=== PATIENT | male | born 1975 | race Caucasian/White ===

== ENCOUNTER 2017-11-16 07:03 | Emergency (ER) | payer OTHER ==
[2017-11-16] MEDS ORDERED: LIDOCAINE 2% INJ-PF (20 MG/ML) 10 ML AMPUL NEB ONE (08:43)
[2017-11-16] MEDS ORDERED: NORMAL SALINE 1000 ML 1,000 ML IV ONE (09:13)
[2017-11-16 09:17] LABS: ABSOLUTE BASOPHILS # (AUTO) 0.1 10^3/uL (0.0-0.2); ABSOLUTE EOSINOPHILS # (AUTO) 0.3 10^3/uL (0.0-0.6); ABSOLUTE LYMPHOCYTES (AUTO) 3.1 10^3/uL (0.5-4.7); ABSOLUTE MONOCYTES (AUTO) 0.6 10^3/uL (0.1-1.4); ABSOLUTE NEUT (AUTO) 5.3 10^3/uL (1.7-8.2); BASOPHILS % (AUTO) 0.6 % (0-2); EOSINOPHILS % (AUTO) 3.3 % (0-6); HEMATOCRIT 47.9 % (37.9-51.0); HEMOGLOBIN 16.6 g/dL (13.5-17.0); LYMPHOCYTES % (AUTO) 32.9 % (13-45); MEAN CORPUSCULAR HGB CONC 34.7 g/dL (32.0-36.0); MEAN CORPUSCULAR VOLUME 86 fl (80-97); MONOCYTES % (AUTO) 6.2 % (3-13); PLATELET COUNT 234 10^3/uL (150-450); RED BLOOD COUNT 5.55 10^6/uL (4.35-5.55); RED CELL DISTRIBUTION WIDTH 12.1 % (11.5-14.0); TOTAL CELLS COUNTED % (AUTO) 100 %; WHITE BLOOD COUNT 9.4 10^3/uL (4.0-10.5)
[2017-11-16 09:30] LABS: ALANINE AMINOTRANSFERASE 95 U/L (21-72); ALKALINE PHOSPHATASE 114 U/L (38-126); ANION GAP 18 (5-19); ASPARTATE AMINO TRANSFERASE 67 U/L (17-59); BILIRUBIN,DIRECT 0.4 mg/dL (0.0-0.4); BILIRUBIN,TOTAL 1.3 mg/dL (0.2-1.3); BLOOD UREA NITROGEN 6 mg/dL (7-20); CARBON DIOXIDE 25 mmol/L (22-30); CHLORIDE 94 mmol/L (98-107); GLUCOSE 378 mg/dL (75-110); POTASSIUM 3.8 mmol/L (3.6-5.0); SODIUM 136.8 mmol/L (137-145); TOTAL PROTEIN 8.7 g/dL (6.3-8.2)
[2017-11-16] MEDS ORDERED: FENTANYL CITRATE INJ/PF 100 MCG/2 ML AMPUL IV ONE ×2 (09:30→10:58)
--- NOTE | 2017-11-16 09:44 | ER Document Report ---
ED ENT - General Chief Complaint: Difficulty Swallowing Stated Complaint: UNABLE TO SWALLOW Time Seen by Provider: 11/16/17 08:42 Mode of Arrival: Ambulatory Information source: Patient Notes: This 41-year-old male patient comes emergency room complaining of onset 11/12/2017 of painful swelling in his left submandibular neck region. Over the next few days the depth comfort progressed medially across the floor of his mouth and went up into the ears bilaterally. Pain also increased in the throat to the point that now he has difficulty swallowing. There is no fever that he knows of. He did note his blood sugars around 400 this morning. There is no cough, nausea vomiting or diarrhea. Patient takes 35 units of 70/30 insulin in the morning at 6 AM and in the evening. He did take his medication this morning. He was on metformin until 2 weeks ago, when it was stopped due to elevated creatinine, but there was no adjustment in his insulin dosing at that time. His blood sugars have been running high recently. The patient takes losartan for his blood pressure, he had been on lisinopril but had chronic cough from that. Review of the [facility] databank shows the patient takes 10 mg [place] 4 times daily and the dosing has been doubled in the past few months. TRAVEL OUTSIDE OF THE [place] IN LAST 30 DAYS: No - Related Data Allergies/Adverse Reactions: gabapentin [From Neurontin] Allergy (Verified 11/16/17 07:12) Past Medical History - General Information source: Patient - Social History Smoking Status: Unknown if Ever Smoked Cigarette use (# per day): No Chew tobacco use (# tins/day): No Smoking Education Provided: No Frequency of alcohol use: Occasional Drug Abuse: None Family History: Reviewed & Not Pertinent - Past Medical History Cardiac Medical History: Reports: Hx Hypercholesterolemia, Hx Hypertension Denies: Hx Coronary Artery Disease Pulmonary Medical History: Reports: None EENT Medical History: Reports: None Neurological Medical History: Reports: None Endocrine Medical History: Reports: Hx Diabetes Mellitus Type 2 - Patient has been diabetic since late 2014. Renal/ Medical History: Reports: None GI Medical History: Reports: None Musculoskeltal Medical History: Reports Other - Chronic low back pain Psychiatric Medical History: Reports: None Traumatic Medical History: Reports: Hx Spine Fracture - Midthoracic compression fractures Past Surgical History: Reports: Hx Orthopedic Surgery - Right knee ACL repair, Hx Umbilical Hernia Review of Systems - Review of Systems Constitutional: No symptoms reported EENT: See HPI, Throat pain Cardiovascular: No symptoms reported Respiratory: No symptoms reported Gastrointestinal: No symptoms reported Genitourinary: No symptoms reported Musculoskeletal: Back pain Skin: No symptoms reported Hematologic/Lymphatic: No symptoms reported Neurological/Psychological: No symptoms reported Physical Exam - Vital signs Vitals: Temp Pulse Resp BP Pulse Ox 99.1 F 120 H 14 136/87 H 96 11/16/17 07:31 11/16/17 07:31 11/16/17 07:31 11/16/17 07:31 11/16/17 07:31 Interpretation: Tachycardic - General General appearance: Alert, Other - Patient appears uncomfortable - HEENT Head: Normocephalic, Atraumatic Eyes: Normal Pupils: PERRL Tympanic membrane: Normal Mucous membranes: Dry Pharynx: Erythema, Uvular edema, Other - There are 2 areas of very superficial erosion measuring about 0.5 x 1 cm located on either side of the uvula on the soft palate. These appear to be mirror images of each other. They do appear to be viral ulcerations. No: Exudate Neck: Other - Very tender to palpate with some swelling noted in the left anterior neck just below the mandible - Respiratory Respiratory status: No respiratory distress Breath sounds: Normal - Cardiovascular Rhythm: Regular, Tachycardia Heart sounds: Normal auscultation Murmur: No - Abdominal Inspection: Normal Bowel sounds: Normal Tenderness: Nontender - Back Back: Other - No gross abnormalities noted - Extremities General upper extremity: Normal inspection, Other - There are no lesions on the palms General lower extremity: Normal inspection, Other - There are no lesions on the soles - Neurological Neuro grossly intact: Yes - Psychological Associated symptoms: Normal affect, Normal mood - Skin Skin Temperature: Warm Skin Moisture: Dry Skin Color: Normal Course - Re-evaluation Re-evalutation: 11/16/17 11:47 The nurse notified me that the [facility] a call them about concerns the brother had had. Apparently the brother called them and was concerned about the patient being depressed and needing mental health evaluation. I was told the patient had a suicide attempt in 2012. I discussed this with the patient, he reports it was an overdose in 2003 after his had an affair and left him to her high school sweetheart. He states he moved in with his brother in February last year after his second divorce and his brother is active duty and was transferred to this area recently. They had been living and [place], [place]. The patient states that he actually enjoys living in this area that is quiet and slower placed in dialysis. He reports she takes Elavil twice daily and trazodone at bedtime for his depression and anxiety issues. He states he is not suicidal. He thinks his brother is concerned because occasionally he will become a little withdrawn and quiet and his brother thinks he is thinking about his ex-. He agrees to discuss these concerns with his brother. - Vital Signs Vital signs: Temp Pulse Resp BP Pulse Ox 99.1 F 120 H 14 136/87 H 96 11/16/17 07:31 11/16/17 07:31 11/16/17 07:31 11/16/17 07:31 11/16/17 07:31 - Laboratory Result Diagrams: 11/16/17 08:55 11/16/17 08:55 Laboratory results interpreted by me: 11/16/17 11/16/17 11/16/17 08:55 08:55 12:03 Sodium 136.8 L Chloride 94 L BUN 6 L Glucose 378 H POC Glucose 260 H Hemoglobin A1c % 10.0 H Calcium 11.0 H AST 67 H ALT 95 H Total Protein 8.7 H - Diagnostic Test Radiology reviewed: Image reviewed, Reports reviewed - CT scan does not show any significant findings. Discharge - Discharge Clinical Impression: Acute viral pharyngitis, Poorly controlled diabetes mellitus Condition: Stable Disposition: HOME, SELF-CARE Additional Instructions: Sore Throat: Sore throats may be caused by viruses, bacteria, or fungi. Most are due to a virus, and must get better on their own. Bacterial sore throats, particularly those due to "strep," need treatment with antibiotics. If an antibiotic is prescribed, be sure to take the medication for a full 10 days. Failure to take the antibiotic can result in complications such as rheumatic fever. Sometimes, an injection of antibiotics is given instead of pills or liquid. This single "shot" is equal in effectiveness to the oral medication. To relieve symptoms, take acetaminophen for pain. Sip clear liquids frequently, or eat popsicles or ice chips. Anesthetic sprays or lozenges may help. Make sure the air in the room is not too dry. Avoid using decongestants or antihistamines. Call the doctor if there is no improvement in two days, or if you have difficulty breathing, increasing throat pain, high fever, rash, or frequent vomiting. Your evaluation suggests this is a viral sore throat. Take the prednisone as prescribed to reduce the inflammation and discomfort. Drink plenty of fluids. Take your regularly prescribed pain medication as needed for pain. Your hemoglobin A1c level was 10.0, this suggests that your blood sugars have been poorly controlled for the last 4 months. You should start taking your metformin again until you can see your primary care provider to discuss adjusting her insulin, and possibly starting a sliding scale for regular insulin. Follow-up with your primary care provider in the next few days for recheck-- take copies of your lab work with you to show to your primary care provider. RETURN TO THE EMERGENCY ROOM IF ANY NEW OR WORSENING SYMPTOMS. Prescriptions: Prednisone [Deltasone 10 mg Tablet] 10 mg PO ASDIR PRN #21 tablet PRN Reason: Referrals: YAAKOV NEWELL PA [Primary Care Provider] - Follow up in 3-5 days
[2017-11-16] MEDS: NORMAL SALINE 1000 ML 1,000 ML IV PRN ×2 (09:51→11:06)
[2017-11-16] MEDS ORDERED: METHYLPREDNISOLONE INJ 125 MG/2 ML SDV IV ONE (09:58)
--- NOTE | 2017-11-16 10:15 | RADIOLOGY REPORT (SQ) ---
EXAM DESCRIPTION: CT SOFT TISSUE NECK WITH COMPLETED DATE/TIME: 11/16/2017 9:55 am REASON FOR STUDY: neck swelling, diff swallowing, tongue pain bilateral submandibular gland swelling COMPARISON: None. TECHNIQUE: Post IV contrasted scanning from skull base through lung apices with review of bone, soft tissue and lung windows. Reconstructed coronal and sagittal MPR images reviewed. All images stored on PACS. All CT scanners at this facility use dose modulation, iterative reconstruction, and/or weight based d osing when appropriate to reduce radiation dose to as low as reasonably achievable (ALARA). [facility]: Dose Right [facility]: CareDose [facility]: Dose Right [facility]: Teradose 4D [facility]: [employer] CONTRAST TYPE AND DOSE: contrast/concentration: Isovue 370.00 mg/ml; Total Contrast Delivered: 75.0 ml; Total Saline Delivered: 55.0 ml RENAL FUNCTION: Creatinine 0.9 RADIATION DOSE: CT Rad equipment meets quality standard of care and radiation dose reduction techniq ues were employed. CTDIvol: 17.1 mGy. DLP: 609 mGy-cm. . LIMITATIONS: None. FINDINGS: SKULL BASE: Embolization coils are present along the right pterygopalatine fossa/ superior nasopharyngeal region. MAJOR SALIVARY GLANDS: No solid or cystic masses. No inflammatory changes. LYMPHADENOPATHY: No bulky adenopathy. Right jugulodigastric lymph node 1.6 x 1.2 cm in size. Left j ugulodigastric lymph node 1.3 x 0.8 cm in size. MUCOSAL MASSES OR ASYMMETRY: No mucosal masses or asymmetry. LARYNX/CORDS: No abnormal findings. VASCULAR STRUCTURES: The major vessels are patent. LUNG APICES: Clear. BONES: Intact. THYROID: Normal size. No masses. PARANASAL SINUSES: Clear. OTHER: Results discussed with Dr. Samson IMPRESSION: NO SIGNIFICANT FINDING IN THE SOFT TISSUES OF THE NECK. TECHNICAL DOCUMENTATION: JOB ID: [id number] Quality ID # [id number]: Final reports with documentation of one or more dose reduction techniques (e.g., Au tomated exposure control, adjustment of the mA and/or kV according to patient size, use of iterative reconstruction technique) 2010 [employer]- All Rights Reserved Reading location - IP/workstation name: [email or web address]
[2017-11-16] MEDS ORDERED: FENTANYL CITRATE INJ/PF 250 MCG/5 ML AMPULE IV ONE (10:47)
[2017-11-16] MEDS ORDERED: KETOROLAC TROMETHAMINE INJ/PF 30 MG/1 ML SDV IV ONE (10:47)
[2017-11-16 13:20] VITALS: BP 130/88
== END 2017-11-16 13:20 | disposition home or self-care (01) ==
LOC: ER 07:03
DX: R13.10 Dysphagia, unspecified (principal); J02.9 Acute pharyngitis, unspecified; E11.9 Type 2 diabetes mellitus without complications; G89.29 Other chronic pain; M54.5 Low back pain; E78.00 Pure hypercholesterolemia, unspecified; I10 Essential (primary) hypertension; Z79.4 Long term (current) use of insulin
CPT/HCPCS: 96376; 99284; 96361; 96374; 96375; 36415; 87070; 87880; 82962; 85025; 87077; 80053; 83036; 70491; J3010; J2930; J1885; J7030

== ENCOUNTER 2018-03-11 11:41 | Emergency (ER) | payer OTHER ==
--- NOTE | 2018-03-11 12:19 | ER Document Report ---
ED Medical Screen (RME) - General Chief Complaint: Fall Injury Stated Complaint: FALL/RIGHT SIDE BODY PAIN Time Seen by Provider: 03/11/18 12:01 Mode of Arrival: Ambulatory Information source: Patient Notes: 42-year-old male presents to ED for complaint of pain to his neck right chest right back right abdomen. He states he fell down a flight of stairs last night with a loss of consciousness. He states he is not able to get up and down without severe tremors and pain. He states he put a hole in the wall when he fell. He states he tripped and fell down the stairs. Has a history of diabetes. Lungs are clear respirations are regular and unlabored. He states it is very painful to take a breath. I have greeted and performed a rapid initial assessment of this patient. A comprehensive ED assessment and evaluation of the patient, analysis of test results and completion of medical decision making process will be conducted by an additional ED providers. TRAVEL OUTSIDE OF THE [place] IN LAST 30 DAYS: No - Related Data Allergies/Adverse Reactions: gabapentin [From Neurontin] Allergy (Verified 03/11/18 11:41) Past Medical History - Social History Chew tobacco use (# tins/day): No Frequency of alcohol use: Occasional Drug Abuse: None - Past Medical History Cardiac Medical History: Reports: Hx Hypercholesterolemia, Hx Hypertension Denies: Hx Coronary Artery Disease Endocrine Medical History: Reports: Hx Diabetes Mellitus Type 2 - Patient has been diabetic since late 2014. Renal/ Medical History: Denies: Hx Peritoneal Dialysis Traumatic Medical History: Reports: Hx Spine Fracture - Midthoracic compression fractures Past Surgical History: Reports: Hx Orthopedic Surgery - Right knee ACL repair, Hx Umbilical Hernia Doctor's Discharge - Discharge Referrals: YAAKOV NEWELL PA [Primary Care Provider] - Follow up as needed
[2018-03-11 12:20] VITALS: BP 141/93
[2018-03-11] MEDS ORDERED: MORPHINE SULFATE 10 MG/ML INJ IM ONE (12:28)
--- NOTE | 2018-03-11 12:35 | ER Document Report ---
ED Fall - General Chief Complaint: Fall Injury Stated Complaint: FALL/RIGHT SIDE BODY PAIN Time Seen by Provider: 03/11/18 12:01 Mode of Arrival: Ambulatory Information source: Patient TRAVEL OUTSIDE OF THE [place] IN LAST 30 DAYS: No - HPI Notes: Patient is a 42-year-old male that presents to the emergency department for chief complaint of fall and rib pain. Patient states last night he fell down the stairs. He states he was walking and tripped on the stairs. He denied any syncopal events. He states he tumbled landing mostly on his right side. He states he hit his head on the wall and may have lost consciousness. He does remember landing at the bottom of the stairs. Since then he has had pain on his right side and back. He states most of the pain is around his right scapula and right lateral chest wall. The pain is sharp and worse with moving. He denies relieving factors. He took a hydrocodone at home which is a medication he is prescribed for chronic back pain. The hydrocodone gave him no relief. He denies any headache , numbness, weakness, vision changes, nausea, vomiting and abdominal pain. Past Medical History: Diabetes Past Surgical History: Negative Social History: Occasional alcohol. Occasional tobacco. Denies drug use Family History: Reviewed and noncontributory for presenting illness Allergies: Reviewed, see documented allergy list. REVIEW OF SYSTEMS: CONSTITUTIONAL : No fever No chills No diaphoresis No recent illness EENT: No vision changes No congestion No sore throat CARDIOVASCULAR: No chest pain No palpitations RESPIRATORY: No shortness of breath No cough No difficulty breathing GASTROINTESTINAL: No abdominal pain No nausea No vomiting No diarrhea GENITOURINARY: No dysuria No hematuria No difficulty urinating MUSCULOSKELETAL: back pain No leg pain No arm pain SKIN: No rashes No lesions LYMPHATIC: No swollen, enlarged glands. NEUROLOGICAL: No lightheadedness No headache No weakness No paresthesias PSYCHIATRIC: No anxiety No depression PHYSICAL EXAMINATION: Vital signs reviewed, nursing noted reviewed. GENERAL: Well-appearing, well-nourished and in no acute distress. HEAD: Atraumatic, normocephalic. EYES: Eyes appear normal, extraocular movements intact, sclera anicteric, conjunctiva are normal. ENT: nares patent, oropharynx clear without exudates. Moist mucous membranes. NECK: Normal range of motion, supple without lymphadenopathy no midline tenderness. No bilateral paraspinal tenderness. Back: No midline thoracic or lumbar tenderness. No lumbar paraspinal tenderness. Normal range of motion of the entire spine. Right paraspinal thoracic tenderness just medial to scapula. No scapular tenderness. LUNGS: Breath sounds clear to auscultation bilaterally and equal. No wheezes rales or rhonchi. Right lateral chest wall tenderness with no crepitus or flail segments. HEART: Regular rate and rhythm without murmurs ABDOMEN: Soft, nontender, normoactive bowel sounds. No rebound, guarding, or rigidity. No masses appreciated. EXTREMITIES: Normal range of motion without tenderness of right shoulder, right elbow, right wrist. normal gait. Pelvis stable. No long bone deformities or bony tenderness. NEUROLOGICAL: No focal neurological deficits. Moves all extremities spontaneously Motor and sensory grossly intact on exam. PSYCH: Normal mood, normal affect. SKIN: Warm, Dry, normal turgor, no rashes or lesions noted on exposed skin. No ecchymosis to trunk, upper extremities, or lower extremities. No abrasions. - Related data Allergies/Adverse Reactions: gabapentin [From Neurontin] Allergy (Verified 03/11/18 11:41) Past Medical History - General Information source: Patient - Social History Smoking Status: Never Smoker Chew tobacco use (# tins/day): No Frequency of alcohol use: Occasional Drug Abuse: None Family History: Reviewed & Not Pertinent Patient has suicidal ideation: No Patient has homicidal ideation: No - Past Medical History Cardiac Medical History: Reports: Hx Hypercholesterolemia, Hx Hypertension Denies: Hx Coronary Artery Disease Endocrine Medical History: Reports: Hx Diabetes Mellitus Type 2 - Patient has been diabetic since late 2014. Renal/ Medical History: Denies: Hx Peritoneal Dialysis Traumatic Medical History: Reports: Hx Spine Fracture - Midthoracic compression fractures Past Surgical History: Reports: Hx Orthopedic Surgery - Right knee ACL repair, Hx Umbilical Hernia Review of Systems - Review of Systems Notes: Dictated Physical Exam - Vital signs Vitals: Temp Pulse Resp BP Pulse Ox 98.6 F 116 H 20 141/93 H 95 03/11/18 11:49 03/11/18 11:49 03/11/18 11:49 03/11/18 11:49 03/11/18 11:49 - Notes Notes: Dictated Course - Re-evaluation Re-evalutation: 03/11/18 12:35 Vitals reviewed. Nursing notes reviewed. Patient is ambulatory with no focal neurologic deficits. He does report a fall with possible loss of consciousness and CT brain and cervical spine obtained to evaluate for injury. Patient has tenderness to palpation on his right lateral rib cage and right thoracic paraspinal musculature. He has no midline spinal tenderness. There are no external signs of injury including abrasions and ecchymosis. 03/11/18 14:02 Patient received 8 mg of IM morphine. Nursing notes that as soon as the injection was given he told her that morphine never works for him. He was aware that he was receiving morphine prior to getting the injection. Patient states that "only Dilaudid works for me". He has repeatedly asked for Dilaudid despite being told that he just received an opiate pain medication and further opiates given immediately is not indicated. He was ordered Lidoderm patch for further pain control. X-ray shows no pneumothorax or acute bony injury. CT of the cervical spine is negative. 03/11/18 14:11 CT brain negative for intracranial injury. Patient will be discharged home in stable condition. Told to return for new or worsening symptoms. - Vital Signs Vital signs: Temp Pulse Resp BP Pulse Ox 98.6 F 116 H 20 141/93 H 95 03/11/18 11:49 03/11/18 11:49 03/11/18 11:49 03/11/18 11:49 03/11/18 11:49 Discharge - Discharge Clinical Impression: Fall Qualifiers: Encounter type: initial encounter Qualified Code(s): W19.XXXA - Unspecified fall, initial encounter Thoracic back pain Qualifiers: Chronicity: acute Back pain laterality: right Qualified Code(s): M54.6 - Pain in thoracic spine Contusion of rib on right side Qualifiers: Encounter type: initial encounter Qualified Code(s): S20.211A - Contusion of right front wall of thorax, initial encounter Condition: Stable Disposition: HOME, SELF-CARE Instructions: Rib Contusion ([facility]) Additional Instructions: Please return to the emergency department if you have any worsening, or concern of your symptoms. Please return to the emergency department if you develop chest pain, difficulty breathing, severe abdominal pain, or ongoing vomiting. Please follow-up with your primary care physician in 2-3 days and any other recommended physicians. If prescribed, take all medications as directed. If you have any questions or concerns do not hesitate to return the emergency department for evaluation. [] Referrals: YAAKOV NEWELL PA [Primary Care Provider] - Follow up in 3-5 days
--- NOTE | 2018-03-11 13:41 | RADIOLOGY REPORT (SQ) ---
EXAM DESCRIPTION: CT CERVICAL SPINE WITHOUT COMPLETED DATE/TIME: 03/11/2018 1:13 pm REASON FOR STUDY: fell down of stairs pain rt neck chest and abd COMPARISON: None. TECHNIQUE: Axial images acquired through the cervical spine without intravenous contrast. Images re viewed with lung, soft tissue and bone windows. Reconstructed coronal and sagittal MPR images review ed. Images stored on PACS. All CT scanners at this facility use dose modulation, iterative reconstruction, and/or weight based d osing when appropriate to reduce radiation dose to as low as reasonably achievable (ALARA). [facility]: Dose Right [facility]: CareDose [facility]: Dose Right [facility]: Teradose 4D [facility]: [employer] [place] RADIATION DOSE: CT Rad equipment meets quality standard of care and radiation dose reduction techniq ues were employed. CTDIvol: 33.4 mGy. DLP: 776 mGy-cm. mGy. LIMITATIONS: None. FINDINGS: ALIGNMENT: Anatomic. MINERALIZATION: Normal. VERTEBRAL BODIES: No fractures or dislocation. DISCS: No significant disc disease. FACETS, LATERAL MASSES, POSTERIOR ELEMENTS: Anatomic variant incomplete posterior arch of C1. HARDWARE: None in the spine. VISUALIZED RIBS: No fractures. LUNG APICES AND SOFT TISSUES: No significant or acute findings. OTHER: No other significant finding. IMPRESSION: NO ACUTE OR SIGNIFICANT FINDINGS IN THE CERVICAL SPINE. TECHNICAL DOCUMENTATION: JOB ID: [id number] Quality ID # [id number]: Final reports with documentation of one or more dose reduction techniques (e.g., Au tomated exposure control, adjustment of the mA and/or kV according to patient size, use of iterative reconstruction technique) 2010 [employer]- All Rights Reserved Reading location - IP/workstation name: [email or web address]
--- NOTE | 2018-03-11 13:58 | RADIOLOGY REPORT (SQ) ---
EXAM DESCRIPTION: RIBS RIGHT W/PA CHEST COMPLETED DATE/TIME: 03/11/2018 1:16 pm REASON FOR STUDY: fall, right rib pain COMPARISON: None. TECHNIQUE: Frontal view of the chest and additional views of the right ribs acquired. NUMBER OF VIEWS: Four view. LIMITATIONS: None. FINDINGS: FRONTAL CXR: Bandlike scarring or atelectasis right lower lung. No pneumothorax. RIBS: No displaced rib fractures. No lytic or blastic bony lesions. OTHER: No other significant finding. IMPRESSION: NO PNEUMOTHORAX. NO DISPLACED RIB FRACTURES. COMMENT: SITE OF TRAUMA/COMPLAINT MARKED/STAMP COMPLETED: NO. TECHNICAL DOCUMENTATION: JOB ID: [id number] [employer]- All Rights Reserved Reading location - IP/workstation name: [email or web address]
[2018-03-11] MEDS ORDERED: LIDOCAINE 5% (700 MG) TRANSDERMAL ADH..PATCH TP ONE (14:04)
--- NOTE | 2018-03-11 14:10 | RADIOLOGY REPORT (SQ) ---
EXAM DESCRIPTION: CT HEAD WITHOUT COMPLETED DATE/TIME: 03/11/2018 1:13 pm REASON FOR STUDY: fall COMPARISON: None. TECHNIQUE: Axial images acquired through the brain without intravenous contrast. Images reviewed wi th bone, brain and subdural windows. Additional sagittal and coronal reconstructions were generated. Images stored on PACS. All CT scanners at this facility use dose modulation, iterative reconstruction, and/or weight based d osing when appropriate to reduce radiation dose to as low as reasonably achievable (ALARA). [facility]: Dose Right [facility]: CareDose [facility]: Dose Right [facility]: Teradose 4D [facility]: [employer] RADIATION DOSE: CT Rad equipment meets quality standard of care and radiation dose reduction techniq ues were employed. CTDIvol: 53.2 mGy. DLP: 1070 mGy-cm. mGy. LIMITATIONS: None. FINDINGS: VENTRICLES: Normal size and contour. CEREBRUM: No masses. No hemorrhage. No midline shift. No evidence for acute infarction. Normal gra y/white matter differentiation. No areas of low density in the white matter. CEREBELLUM: No masses. No hemorrhage. No alteration of density. No evidence for acute infarction. EXTRAAXIAL SPACES: No fluid collections. No masses. ORBITS AND GLOBE: No intra- or extraconal masses. Normal contour of globe without masses. CALVARIUM: No fracture. PARANASAL SINUSES: No fluid or mucosal thickening. SOFT TISSUES: No mass or hematoma. OTHER: No other significant finding. IMPRESSION: NORMAL BRAIN CT WITHOUT CONTRAST. EVIDENCE OF ACUTE STROKE: NO. COMMENT: Quality ID # [id number]: Final reports with documentation of one or more dose reduction techniques (e.g., Automated exposure control, adjustment of the mA and/or kV according to patient size, use of iterative reconstruction technique) TECHNICAL DOCUMENTATION: JOB ID: [id number] [employer] All Rights Reserved Reading location - IP/workstation name: [email or web address]
== END 2018-03-11 14:16 | disposition home or self-care (01) ==
LOC: ER 11:41
DX: S20.211A Contusion of right front wall of thorax, initial encounter (principal); M54.6 Pain in thoracic spine; W10.9XXA Fall (on) (from) unspecified stairs and steps, initial encounter; E11.9 Type 2 diabetes mellitus without complications; I10 Essential (primary) hypertension; G89.29 Other chronic pain; Z79.891 Long term (current) use of opiate analgesic; Z88.6 Allergy status to analgesic agent; Z87.81 Personal history of (healed) traumatic fracture
CPT/HCPCS: 99284; 96372; 71101; 70450; 72125; J2270

== ENCOUNTER 2018-03-13 10:33 | Emergency (ER) | payer OTHER ==
[2018-03-13 10:38] VITALS: BP 128/89
[2018-03-13] MEDS ORDERED: HYDROMORPHONE HCL INJ/PF 2 MG/ML AMPULE IV ONE ×2 (11:01→13:58)
[2018-03-13] MEDS ORDERED: NORMAL SALINE 1000 ML 1,000 ML IV ONE ×2 (11:03→13:11)
--- NOTE | 2018-03-13 11:03 | ER Document Report ---
ED General - General Chief Complaint: Rib Pain Stated Complaint: FALL/CHEST/RIB PAIN Time Seen by Provider: 03/13/18 10:49 Mode of Arrival: Ambulatory Information source: Patient Notes: Patient states that he felt down 8 stairs in his home 2 days ago and was seen here after the injury. Patient complains of persistent right sided rib pain since the injury. Patient states that he was advised to follow-up for any worsening of symptoms. Patient does complain of pain with inspiration. Patient denies any cough or fever. Patient denies any new injury. Patient does take hydrocodone 10 mg for chronic back pain but denies taking any other medication today. TRAVEL OUTSIDE OF THE [place] IN LAST 30 DAYS: No - HPI Onset: Other - 2 days ago Onset/Duration: Persistent Quality of pain: Sharp Pain Level: 5 Associated symptoms: Chest pain - Lateral rib pain. denies: Nonproductive cough , Fever, Nausea Exacerbated by: Movement, Deep breathing Relieved by: Denies Similar symptoms previously: No Recently seen / treated by doctor: Yes - Related Data Allergies/Adverse Reactions: gabapentin [From Neurontin] Allergy (Verified 03/11/18 11:41) Past Medical History - General Information source: Patient - Social History Smoking Status: Current Every Day Smoker Frequency of alcohol use: Occasional Drug Abuse: None Family History: Reviewed & Not Pertinent Patient has suicidal ideation: No Patient has homicidal ideation: No - Past Medical History Cardiac Medical History: Reports: Hx Hypercholesterolemia, Hx Hypertension Denies: Hx Coronary Artery Disease Endocrine Medical History: Reports: Hx Diabetes Mellitus Type 2 - Patient has been diabetic since late 2014. Renal/ Medical History: Denies: Hx Peritoneal Dialysis Musculoskeletal Medical History: Reports Other - Chronic back pain Traumatic Medical History: Reports: Hx Spine Fracture - Midthoracic compression fractures Past Surgical History: Reports: Hx Orthopedic Surgery - Right knee ACL repair, Hx Umbilical Hernia Review of Systems - Review of Systems Constitutional: No symptoms reported. denies: Fever EENT: No symptoms reported Cardiovascular: Chest pain - Lateral rib pain. denies: Dizziness Respiratory: Hurts to breathe. denies: Cough Gastrointestinal: No symptoms reported. denies: Abdominal pain, Vomiting Genitourinary: No symptoms reported Male Genitourinary: No symptoms reported Musculoskeletal: No symptoms reported Skin: No symptoms reported Hematologic/Lymphatic: No symptoms reported Neurological/Psychological: No symptoms reported Physical Exam - Vital signs Vitals: Temp Pulse Resp BP Pulse Ox 98.7 F 106 H 18 128/89 H 100 03/13/18 10:37 03/13/18 10:37 03/13/18 10:37 03/13/18 10:37 03/13/18 10:37 - General General appearance: Appears well, Alert In distress: None - Respiratory Respiratory status: No respiratory distress Chest status: Tender, Pain on movement, Pain with deep breathing Breath sounds: Normal. No: Rales, Rhonchi, Stridor Chest palpation: Tender. No: Subcutaneous emphysema, Sucking chest wound, Ecchymosis Notes: Right lateral chest wall, right anterior chest wall tenderness - Cardiovascular Rhythm: Regular Heart sounds: S1 appreciated, S2 appreciated Murmur: No - Abdominal Inspection: Obese Distension: No distension Bowel sounds: Normal Tenderness: Tender - Right upper quadrant, right lateral side pain, Guarding Organomegaly: No organomegaly - Back Back: Tender - Right thoracic paraspinal tenderness. No: Deformity/step-off, CVA tenderness, Vertebra tenderness - Extremities General upper extremity: Normal inspection, Normal ROM General lower extremity: Normal inspection, Normal ROM - Neurological Neuro grossly intact: Yes Cognition: Normal Max Coma Scale Eye Opening: Spontaneous Max Coma Scale Verbal: Oriented Lemmon Coma Scale Motor: Obeys Commands Max Coma Scale Total: 15 - Psychological Associated symptoms: Normal affect, Normal mood - Skin Skin Temperature: Warm Skin Moisture: Dry Skin Color: Normal Course - Re-evaluation Re-evalutation: 03/13/18 14:49 Patient continues with right sided rib tenderness that is worse with inspiration. Patient without any fever or leukocytosis. Reviewed CT report with Dr. Dang, recommends covering patient with antibiotics given concerns about infiltrate versus atelectasis. Discussed plan of care with patient. Patient educated on good pulmonary toilet. Patient nontoxic in appearance good return precautions given. - Vital Signs Vital signs: Temp Pulse Resp BP Pulse Ox 98.7 F 106 H 18 128/89 H 100 03/13/18 10:37 03/13/18 10:37 03/13/18 10:37 03/13/18 10:37 03/13/18 10:37 - Laboratory Result Diagrams: 03/13/18 11:13 03/13/18 11:13 Laboratory results interpreted by me: 03/13/18 11:13 Sodium 136.1 L Chloride 97 L Glucose 252 H Direct Bilirubin 0.6 H AST 78 H ALT 209 H Total Protein 8.5 H Labs- Entire Visit 03/13/18 03/13/18 11:13 11:13 WBC 10.4 RBC 4.83 Hgb 14.5 Hct 42.2 MCV 87 MCH 30.0 MCHC 34.4 RDW 12.9 Plt Count 248 Seg Neutrophils % 71.6 Lymphocytes % 19.9 Monocytes % 6.1 Eosinophils % 1.9 Basophils % 0.5 Absolute Neutrophils 7.5 Absolute Lymphocytes 2.1 Absolute Monocytes 0.6 Absolute Eosinophils 0.2 Absolute Basophils 0.1 Sodium 136.1 L Potassium 4.3 Chloride 97 L Carbon Dioxide 25 Anion Gap 14 BUN 15 Creatinine 0.84 Est GFR ( Amer) > 60 Est GFR (Non-Af Amer) > 60 Glucose 252 H Calcium 10.2 Total Bilirubin 1.0 Direct Bilirubin 0.6 H Neonat Total Bilirubin Not Reportable Neonat Direct Bilirubin Not Reportable Neonat Indirect Bili Not Reportable AST 78 H ALT 209 H Alkaline Phosphatase 116 Total Protein 8.5 H Albumin 4.8 Lipase 49.7 03/13/18 20:56 Reviewed previous ER laboratory tests - Diagnostic Test Radiology reviewed: Reports reviewed - Reviewed radiology report from previous ER visit Discharge - Discharge Clinical Impression: Multiple rib fractures Qualifiers: Encounter type: initial encounter Fracture type: closed Laterality: right Qualified Code(s): S22.41XA - Multiple fractures of ribs, right side, initial encounter for closed fracture Condition: Stable Disposition: HOME, SELF-CARE Instructions: Doxycycline ([facility]), Pneumonia ([facility]), Rib Injuries and Fractures ( [facility]) Additional Instructions: Return immediately for any new or worsening symptoms Followup with your primary care provider, call tomorrow to make a followup appointment Stop smoking Take your pain medication that you have at home as prescribed Take a stool softener such as Colace [id number] as directed Prescriptions: Doxycycline Hyclate 100 mg PO BID #20 capsule Forms: Smoking Cessation Education Referrals: MARION SANZ MD [Primary Care Provider] - Follow up as needed
[2018-03-13 11:30] LABS: ABSOLUTE BASOPHILS # (AUTO) 0.1 10^3/uL (0.0-0.2); ABSOLUTE EOSINOPHILS # (AUTO) 0.2 10^3/uL (0.0-0.6); ABSOLUTE LYMPHOCYTES (AUTO) 2.1 10^3/uL (0.5-4.7); ABSOLUTE MONOCYTES (AUTO) 0.6 10^3/uL (0.1-1.4); ABSOLUTE NEUT (AUTO) 7.5 10^3/uL (1.7-8.2); BASOPHILS % (AUTO) 0.5 % (0-2); EOSINOPHILS % (AUTO) 1.9 % (0-6); HEMATOCRIT 42.2 % (37.9-51.0); HEMOGLOBIN 14.5 g/dL (13.5-17.0); LYMPHOCYTES % (AUTO) 19.9 % (13-45); MEAN CORPUSCULAR HGB CONC 34.4 g/dL (32.0-36.0); MEAN CORPUSCULAR VOLUME 87 fl (80-97); MONOCYTES % (AUTO) 6.1 % (3-13); PLATELET COUNT 248 10^3/uL (150-450); RED BLOOD COUNT 4.83 10^6/uL (4.35-5.55); RED CELL DISTRIBUTION WIDTH 12.9 % (11.5-14.0); SEGMENTED NEUTROPHILS % (AUTO) 71.6 % (42-78); TOTAL CELLS COUNTED % (AUTO) 100 %; WHITE BLOOD COUNT 10.4 10^3/uL (4.0-10.5)
[2018-03-13 12:00] LABS: ALANINE AMINOTRANSFERASE 209 U/L (21-72); ALBUMIN 4.8 g/dL (3.5-5.0); ALKALINE PHOSPHATASE 116 U/L (38-126); ANION GAP 14 (5-19); ASPARTATE AMINO TRANSFERASE 78 U/L (17-59); BILIRUBIN,DIRECT 0.6 mg/dL (0.0-0.4); BLOOD UREA NITROGEN 15 mg/dL (7-20); CALCIUM 10.2 mg/dL (8.4-10.2); CARBON DIOXIDE 25 mmol/L (22-30); CHLORIDE 97 mmol/L (98-107); GLUCOSE 252 mg/dL (75-110); LIPASE 49.7 U/L (23-300); POTASSIUM 4.3 mmol/L (3.6-5.0); SODIUM 136.1 mmol/L (137-145); TOTAL PROTEIN 8.5 g/dL (6.3-8.2)
--- NOTE | 2018-03-13 13:33 | RADIOLOGY REPORT (SQ) ---
EXAM DESCRIPTION: CT CHEST WITH; CT ABD/PELVIS WITH IV ONLY COMPLETED DATE/TIME: 03/13/2018 1:06 pm REASON FOR STUDY: fall, r side rib, RUQ pain CONTRAST TYPE AND DOSE: contrast/concentration: Isovue 350.00 mg/ml; Total Contrast Delivered: 100.0 ml; Total Saline Delivered: 72.0 ml RENAL FUNCTION: Creatinine: 0.84. COMPARISON: None. TECHNIQUE: CT scan of the chest performed using helical scanning technique with dynamic intravenous contrast injection. Images reviewed with lung, soft tissue and bone windows. Reconstructed coronal a nd sagittal MPR images reviewed. All images stored on PACS. All CT scanners at this facility use dose modulation, iterative reconstruction, and/or weight based d osing when appropriate to reduce radiation dose to as low as reasonably achievable (ALARA). [facility]: Dose Right [facility]: CareDose [facility]: Dose Right [facility]: Teradose 4D [facility]: [employer] RADIATION DOSE: CT Rad equipment meets quality standard of care and radiation dose reduction techniq ues were employed. CTDIvol: 15.9 - 18.7 mGy. DLP: 2382 mGy-cm.. LIMITATIONS: None. FINDINGS: AXILLAE: No adenopathy. CHEST WALL: No masses. No subcutaneous air. LUNGS: Evidence of infiltrate or atelectasis right middle lobe and right lower lobe. Minimal discoid atelectasis right upper lobe. . No pneumothorax. Small right pleural effusion. Discoid atelectas is or infiltrate left lower lobe. PLEURA: No effusions. No calcifications. THYROID: No abnormality. HILAR AND MEDIASTINAL STRUCTURES: No mediastinal or hilar adenopathy. AORTA AND GREAT VESSELS: No aneurysm. No dissection. PULMONARY ARTERIES: No identified pulmonary emboli. Study not optimized for the pulmonary arteries. HEART: No pericardial effusion. BONES: Fractures of the right 5th, 6th ,and 7th ribs. OTHER: No other significant finding. IMPRESSION: 1. 2. EVIDENCE OF ACUTE FRACTURES RIGHT 5TH, 6TH ,AND 7TH RIBS. 3. RIGHT MIDDLE LOBE AND RIGHT LOWER LOBE INFILTRATE OR ATELECTASIS. DISCOID ATELECTASIS RIGHT UPPE R LOBE. DISCOID ATELECTASIS OR INFILTRATE WITHIN LINGULA AND LEFT LOWER LOBE. COMPARISON: None. RADIATION DOSE: CT Rad equipment meets quality standard of care and radiation dose reduction techniq ues were employed. CTDIvol: 15.9 - 18.7 mGy. DLP: 2382 mGy-cm.mGy. TECHNIQUE: CT scan of the abdomen and pelvis performed with intravenous and oral contrast using mariah devon scanning technique with dynamic intravenous contrast injection. Images reviewed with lung, soft tissue and bone windows. Reconstructed coronal and sagittal MPR images reviewed. Delayed images for evaluation of the urinary system also acquired and evaluated. All images stored on PACS. All CT scanners at this facility use dose modulation, iterative reconstruction, and/or weight based d osing when appropriate to reduce radiation dose to as low as reasonably achievable (ALARA). [facility]: Dose Right [facility]: SureCare [facility]: Dose Right [facility]: Teradose 4D [facility]: [employer] FINDINGS: LIVER: No abnormality. SPLEEN: No abnormality. PANCREAS: No abnormality. GALLBLADDER: No abnormality. ADRENAL GLANDS: No abnormality. RIGHT KIDNEY AND URETER: No abnormality. LEFT KIDNEY AND URETER: No abnormality. AORTA AND VESSELS: No abnormality. No dissection. Renal arteries, SMA, celiac without stenosis. RETROPERITONEUM: No abnormality. LARGE AND SMALL BOWEL: Changes of constipation. APPENDIX: No abnormality. ABDOMINAL WALL: No hernia or masses. PERITONEAL CAVITY: No free air. No free fluid. No peritoneal implants or masses. PELVIS: Urinary bladder: No abnormality. Prostate and seminal vesicles: No abnormality. BONES: Dorsal and lumbar spondylosis. IMPRESSION: CHANGES OF CONSTIPATION. . NORMAL CT OF THE ABDOMEN AND PELVIS WITH ORAL AND INTRAVENO US CONTRAST. TECHNICAL DOCUMENTATION: JOB ID: [id number] SC-69 Quality ID # [id number]: Final reports with documentation of one or more dose reduction techniques (e.g., Au tomated exposure control, adjustment of the mA and/or kV according to patient size, use of iterative reconstruction technique) 2010 [employer]- All Rights Reserved Reading location - IP/workstation name: [email or web address]
--- NOTE | 2018-03-13 13:33 | RADIOLOGY REPORT (SQ) ---
EXAM DESCRIPTION: CT CHEST WITH; CT ABD/PELVIS WITH IV ONLY COMPLETED DATE/TIME: 03/13/2018 1:06 pm REASON FOR STUDY: fall, r side rib, RUQ pain CONTRAST TYPE AND DOSE: contrast/concentration: Isovue 350.00 mg/ml; Total Contrast Delivered: 100.0 ml; Total Saline Delivered: 72.0 ml RENAL FUNCTION: Creatinine: 0.84. COMPARISON: None. TECHNIQUE: CT scan of the chest performed using helical scanning technique with dynamic intravenous contrast injection. Images reviewed with lung, soft tissue and bone windows. Reconstructed coronal a nd sagittal MPR images reviewed. All images stored on PACS. All CT scanners at this facility use dose modulation, iterative reconstruction, and/or weight based d osing when appropriate to reduce radiation dose to as low as reasonably achievable (ALARA). [facility]: Dose Right [facility]: CareDose [facility]: Dose Right [facility]: Teradose 4D [facility]: [employer] RADIATION DOSE: CT Rad equipment meets quality standard of care and radiation dose reduction techniq ues were employed. CTDIvol: 15.9 - 18.7 mGy. DLP: 2382 mGy-cm.. LIMITATIONS: None. FINDINGS: AXILLAE: No adenopathy. CHEST WALL: No masses. No subcutaneous air. LUNGS: Evidence of infiltrate or atelectasis right middle lobe and right lower lobe. Minimal discoid atelectasis right upper lobe. . No pneumothorax. Small right pleural effusion. Discoid atelectas is or infiltrate left lower lobe. PLEURA: No effusions. No calcifications. THYROID: No abnormality. HILAR AND MEDIASTINAL STRUCTURES: No mediastinal or hilar adenopathy. AORTA AND GREAT VESSELS: No aneurysm. No dissection. PULMONARY ARTERIES: No identified pulmonary emboli. Study not optimized for the pulmonary arteries. HEART: No pericardial effusion. BONES: Fractures of the right 5th, 6th ,and 7th ribs. OTHER: No other significant finding. IMPRESSION: 1. 2. EVIDENCE OF ACUTE FRACTURES RIGHT 5TH, 6TH ,AND 7TH RIBS. 3. RIGHT MIDDLE LOBE AND RIGHT LOWER LOBE INFILTRATE OR ATELECTASIS. DISCOID ATELECTASIS RIGHT UPPE R LOBE. DISCOID ATELECTASIS OR INFILTRATE WITHIN LINGULA AND LEFT LOWER LOBE. COMPARISON: None. RADIATION DOSE: CT Rad equipment meets quality standard of care and radiation dose reduction techniq ues were employed. CTDIvol: 15.9 - 18.7 mGy. DLP: 2382 mGy-cm.mGy. TECHNIQUE: CT scan of the abdomen and pelvis performed with intravenous and oral contrast using mariah deovn scanning technique with dynamic intravenous contrast injection. Images reviewed with lung, soft tissue and bone windows. Reconstructed coronal and sagittal MPR images reviewed. Delayed images for evaluation of the urinary system also acquired and evaluated. All images stored on PACS. All CT scanners at this facility use dose modulation, iterative reconstruction, and/or weight based d osing when appropriate to reduce radiation dose to as low as reasonably achievable (ALARA). [facility]: Dose Right [facility]: [facility]Care [facility]: Dose Right [facility]: Teradose 4D [facility]: [employer] [facility] FINDINGS: LIVER: No abnormality. SPLEEN: No abnormality. PANCREAS: No abnormality. GALLBLADDER: No abnormality. ADRENAL GLANDS: No abnormality. RIGHT KIDNEY AND URETER: No abnormality. LEFT KIDNEY AND URETER: No abnormality. AORTA AND VESSELS: No abnormality. No dissection. Renal arteries, SMA, celiac without stenosis. RETROPERITONEUM: No abnormality. LARGE AND SMALL BOWEL: Changes of constipation. APPENDIX: No abnormality. ABDOMINAL WALL: No hernia or masses. PERITONEAL CAVITY: No free air. No free fluid. No peritoneal implants or masses. PELVIS: Urinary bladder: No abnormality. Prostate and seminal vesicles: No abnormality. BONES: Dorsal and lumbar spondylosis. IMPRESSION: CHANGES OF CONSTIPATION. . NORMAL CT OF THE ABDOMEN AND PELVIS WITH ORAL AND INTRAVENO US CONTRAST. TECHNICAL DOCUMENTATION: JOB ID: [id number] SC-69 Quality ID # [id number]: Final reports with documentation of one or more dose reduction techniques (e.g., Au tomated exposure control, adjustment of the mA and/or kV according to patient size, use of iterative reconstruction technique) 2010 [employer]- All Rights Reserved Reading location - IP/workstation name: [email or web address]
[2018-03-13] MEDS ORDERED: CEFTRIAXONE INJ 1000 MG VIAL IV ONE (14:49)
[2018-03-13] MEDS ORDERED: DOXYCYCLINE HYCLATE 100 MG TABLET PO ONE (14:49)
== END 2018-03-13 16:50 | disposition home or self-care (01) ==
LOC: ER 10:33
DX: S22.41XA Multiple fractures of ribs, right side, initial encounter for closed fracture (principal); R07.81 Pleurodynia; W10.9XXA Fall (on) (from) unspecified stairs and steps, initial encounter; F17.200 Nicotine dependence, unspecified, uncomplicated; E78.00 Pure hypercholesterolemia, unspecified; I10 Essential (primary) hypertension; E11.9 Type 2 diabetes mellitus without complications
CPT/HCPCS: 96376; 99284; 96361; 96374; 96375; 36415; 83690; 85025; 80053; 71260; 74177; J1170; J0696; J7030

== ENCOUNTER 2018-03-14 22:31 | Inpatient (IN) | payer OTHER ==
[2018-03-14] MEDS ORDERED: DIAZEPAM INJ 10 MG/2 ML DISP.SYRIN IV ONE (22:46)
[2018-03-14] MEDS ORDERED: RINGERS SOLUTION,LACTATED 1,000 ML IV ONE (22:46)
--- NOTE | 2018-03-14 22:49 | ER Document Report ---
ED General - General Stated Complaint: ETOH Time Seen by Provider: 03/14/18 22:33 Cannot obtain history due to: Uncooperative, Altered mental status Notes: Patient is a 42-year-old male, unknown past medical history although EMS reports that family reports alcohol and polysubstance abuse as well as recent right-sided rib fractures who presents by EMS for abnormal behaviors. Family had apparently reported to EMS that the patient has been tremulous, acting unusually and EMS was subsequently contacted to bring patient to the hospital. No additional history can be obtained as the patient is quite altered. TRAVEL OUTSIDE OF THE [place] IN LAST 30 DAYS: No - Related Data Allergies/Adverse Reactions: gabapentin [From Neurontin] Allergy (Verified 03/11/18 11:41) Past Medical History - General Information source: Emergency Med Personnel Cannot obtain history due to: Mentally challenged, Uncooperative - Social History Smoking Status: Unknown if Ever Smoked Family History: Reviewed & Not Pertinent - Past Medical History Cardiac Medical History: Reports: Hx Hypercholesterolemia, Hx Hypertension Denies: Hx Coronary Artery Disease Endocrine Medical History: Reports: Hx Diabetes Mellitus Type 2 - Patient has been diabetic since late 2014. Renal/ Medical History: Denies: Hx Peritoneal Dialysis Traumatic Medical History: Reports: Hx Spine Fracture - Midthoracic compression fractures Past Surgical History: Reports: Hx Orthopedic Surgery - Right knee ACL repair, Hx Umbilical Hernia Review of Systems - Review of Systems -: Yes ROS unobtainable due to patient's medical condition Physical Exam - Vital signs Interpretation: Tachycardic Notes: PHYSICAL EXAMINATION: GENERAL: No distress, appears confused HEAD: Atraumatic, normocephalic. EYES: Pupils equal round and reactive to light, extraocular movements intact, sclera anicteric, conjunctiva are normal. ENT: nares patent, oropharynx clear without exudates. Moderately dry mucous membranes. NECK: Normal range of motion, supple without lymphadenopathy LUNGS: Breath sounds clear to auscultation bilaterally and equal. No wheezes rales or rhonchi. HEART: Regular tachycardia without murmurs ABDOMEN: Soft, nontender, normoactive bowel sounds. No guarding, no rebound. No masses appreciated. EXTREMITIES: Normal range of motion, no pitting or edema. No cyanosis. NEUROLOGICAL: Face symmetric. Tongue protrudes midline. Extraocular motions intact. Pupils are 2 mm and equally reactive. Normal speech, normal gait. 5 out of 5 strength in both the distal and proximal upper and lower extremities bilaterally. Sensation is grossly intact throughout. Resting tremor in the hands bilaterally as well as in the head PSYCH: Awake, oriented only to person SKIN: Warm, Dry, normal turgor, no rashes or lesions noted. Course - Re-evaluation Re-evalutation: 03/14/18 22:47 Patient presents delirious, fidgeting, shaking, oriented only to self. Unable to provide any meaningful history. Appears to be actively withdrawing from alcohol. Family history probably provided to EMS does suggest a likely alcohol withdrawal picture as well as the patient having history of polysubstance abuse. The patient has no focal neurologic deficits on examination. Initial vitals show mild tachycardia at 102 otherwise unremarkable. Patient was recently seen and evaluated for multiple right-sided rib fractures, did not have any component of pneumonia on most recent CT. Will obtain labs, repeat chest x-ray, EKG, provide thiamine, diazepam, IV fluids, and reassess the patient. He is in guarded condition at this point given his active delirium and will require regular reassessments to monitor for improvement after administration of the above medications 03/14/18 23:56 Patient's altered mental status persists although he is no longer significantly tremulous. His initial laboratories are effectively unremarkable. CT scan of the head is pending. Patient continues to be completely unable to provide any form of meaningful history only stating his name. He continues to be disoriented to all other aspects. He remains without focal neurologic deficits. Overall presentation continues to be most consistent with probable delirium tremens. Will continue to monitor and reassess at regular intervals. 03/15/18 00:28 Patient continues to be disoriented although is now more alert admits that he does drink often and believes he is having alcohol withdrawal. However he is still disoriented to year and location although at least at this point he knows that he is in [place]. I have discussed this case with the hospitalist on-call Dr. Cee as the patient continues to be somewhat delirious and is not safe for discharge at this point. She has agreed to accept the patient for admission. - Laboratory Result Diagrams: 03/14/18 22:57 03/14/18 22:57 Laboratory results interpreted by me: 03/14/18 03/14/18 22:57 22:57 WBC 11.1 H Hgb 13.1 L Hct 37.6 L Absolute Neutrophils 8.3 H Sodium 134.9 L Glucose 228 H ALT 117 H Salicylates < 1.0 L Acetaminophen < 10 L - Diagnostic Test Radiology reviewed: Image reviewed, Reports reviewed Radiology results interpreted by me: 03/15/18 00:02 Chest x-ray: Effectively unchanged from previous chest x-ray. Atelectatic changes at the right base Critical Care Note - Critical Care Note Total time excluding time spent on procedures (mins): 36 Comments: Critical care time spent obtaining history from patient or surrogate, discussions with consultants, development of treatment plan with patient or surrogate, evaluation of patient's response to treatment, examination of patient , ordering and performing treatments and interventions, ordering and review of laboratory studies, re-evaluation of patient's condition, ordering and review of radiographic studies and review of old charts Discharge - Discharge Clinical Impression: Delirium tremens Alcohol withdrawal Qualifiers: Complication of substance-induced condition: with delirium Qualified Code(s): F10.231 - Alcohol dependence with withdrawal delirium Condition: Fair Disposition: ADMITTED INPATIENT Admitting Provider: Hospitalist Unit Admitted: Telemetry Referrals: MARION SANZ MD [Primary Care Provider] - Follow up as needed
[2018-03-14] MEDS ORDERED: THIAMINE HCL 500 MG in NORMAL SALINE 250 ML IV ONE (23:00)
[2018-03-14] MEDS ORDERED: THIAMINE HCL 500 MG in NORMAL SALINE 250 ML IV SCH (23:00)
[2018-03-14 23:06] LABS: ABSOLUTE EOSINOPHILS # (AUTO) 0.2 10^3/uL (0.0-0.6); ABSOLUTE LYMPHOCYTES (AUTO) 2.1 10^3/uL (0.5-4.7); ABSOLUTE MONOCYTES (AUTO) 0.5 10^3/uL (0.1-1.4); ABSOLUTE NEUT (AUTO) 8.3 10^3/uL (1.7-8.2); BASOPHILS % (AUTO) 0.3 % (0-2); EOSINOPHILS % (AUTO) 1.6 % (0-6); HEMATOCRIT 37.6 % (37.9-51.0); HEMOGLOBIN 13.1 g/dL (13.5-17.0); LYMPHOCYTES % (AUTO) 18.9 % (13-45); MEAN CORPUSCULAR HGB CONC 34.9 g/dL (32.0-36.0); MEAN CORPUSCULAR VOLUME 86 fl (80-97); MONOCYTES % (AUTO) 4.4 % (3-13); PLATELET COUNT 245 10^3/uL (150-450); RED BLOOD COUNT 4.37 10^6/uL (4.35-5.55); RED CELL DISTRIBUTION WIDTH 12.7 % (11.5-14.0); SEGMENTED NEUTROPHILS % (AUTO) 74.8 % (42-78); TOTAL CELLS COUNTED % (AUTO) 100 %; WHITE BLOOD COUNT 11.1 10^3/uL (4.0-10.5)
[2018-03-14 23:19] LABS: ALANINE AMINOTRANSFERASE 117 U/L (21-72); ALBUMIN 4.3 g/dL (3.5-5.0); ALKALINE PHOSPHATASE 104 U/L (38-126); ANION GAP 13 (5-19); ASPARTATE AMINO TRANSFERASE 35 U/L (17-59); BILIRUBIN,DIRECT 0.4 mg/dL (0.0-0.4); BILIRUBIN,TOTAL 0.7 mg/dL (0.2-1.3); BLOOD UREA NITROGEN 8 mg/dL (7-20); CALCIUM 9.8 mg/dL (8.4-10.2); CARBON DIOXIDE 23 mmol/L (22-30); CHLORIDE 99 mmol/L (98-107); GLUCOSE 228 mg/dL (75-110); LIPASE 31.3 U/L (23-300); POTASSIUM 3.6 mmol/L (3.6-5.0); SODIUM 134.9 mmol/L (137-145); TOTAL PROTEIN 7.5 g/dL (6.3-8.2)
[2018-03-14 23:20] LABS: ACETAMINOPHEN < 10 ug/mL (10-30); ALCOHOL < 10 mg/dL (NONE DETECTED); SALICYLATE < 1.0 mg/dL (2.0-20.0)
[2018-03-14] MEDS ORDERED: THIAMINE HCL INJ 200 MG/2 ML VIAL ONE (23:51)
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
--- NOTE | 2018-03-15 00:11 | RADIOLOGY REPORT (SQ) ---
XR CHEST 1 VIEW HISTORY: Rib fractures. COMPARISON: None. FINDINGS/IMPRESSION: Multiple right-sided rib fractures are present, with atelectasis/contusion in the right lower lung zone and small right pleural effusion. Findings are better seen on recent CT scan dated 03/13/2018. No discernible pneumothorax. Left lung is clear. Normal cardiac silhouette.
[2018-03-15] MEDS ORDERED: DIAZEPAM INJ 10 MG/2 ML DISP.SYRIN IV ONE (00:38)
[2018-03-15] MEDS ORDERED: PROMETHAZINE HCL INJ 25 MG/1 ML VIAL IV PRN (01:15)
[2018-03-15] MEDS ORDERED: ACETAMINOPHEN 325 MG TABLET PO PRN (01:15)
[2018-03-15] MEDS ORDERED: NORMAL SALINE 1000 ML 1,000 ML IV PRN (01:15)
[2018-03-15] MEDS ORDERED: MAG HYDROX/AL HYDROX/SIMETH SUSP 30 ML UDCUP PO PRN (01:15)
[2018-03-15] MEDS ORDERED: PROMETHAZINE HCL 25 MG TABLET PO PRN (01:15)
[2018-03-15] MEDS ORDERED: DEXTROSE 40% GEL 15 GM TUBE PO PRN ×2 (01:28)
[2018-03-15] MEDS ORDERED: DEXTROSE 50%-WATER 25 GM/50 ML DISP.SYRIN IV PRN ×2 (01:28)
[2018-03-15] MEDS ORDERED: GLUCAGON,HUMAN RECOMB 1 MG INJ IM PRN (01:28)
[2018-03-15] MEDS ORDERED: THIAMINE HCL 500 MG in NORMAL SALINE 250 ML IV ONE (01:30)
[2018-03-15] MEDS ORDERED: DIVALPROEX SODIUM 250 MG TAB.SR.24H PO ONE (01:40)
[2018-03-15] MEDS ORDERED: THIAMINE HCL INJ 200 MG/2 ML VIAL IV ONE (02:00)
[2018-03-15] MEDS ORDERED: MVI, ADULT NO.1 WITH VIT K INJ 10 ML VIAL IV ONE (02:00)
[2018-03-15] MEDS ORDERED: MAGNESIUM SULFATE INJ 8 MEQ/2 ML IV ONE (02:00)
[2018-03-15] MEDS ORDERED: POTASSIUM CHLORIDE 20 MEQ/50 ML RTU IV ONE ×2 (02:00→07:15)
--- NOTE | 2018-03-15 02:01 | PDOC H&P ---
History of Present Illness Admission Date/PCP: 03/15/18 00:53 MARION SANZ MD Patient complains of: altered mental status History of Present Illness: LOIS MUNOZ is a 42 year old male with a long history of alcohol dependence who was brought by EMS with altered mental status. Patient is very confused and cannot provide minimal information. Tells me that he is here because he drinks a lot, says that his last drink was 8 hours ago but he told to the ED attending that was 2 days ago. Apparently his brother call at his house and noticed something different and decided to call EMS, patient was found tremulous and acting confused. In the ED initially very delirious, fidgeting, tremulous and oriented only to self, unable to provide any meaningful history. [place] that the patient was actively withdrawing from alcohol and a total of 20 mg of IV diazepam was given. By the time he went to assess him his mental status minimally improved and was able to answer some of my questions in a reliable way, tells me that he feels his upper and lower extremities very stiff , also tells me that he is not proud of what is going on, tells me he had an episode of alcohol withdrawal in the past but he does not remember when. Drinks more than 12 beers a day. Patient was in our facility on March 11 status post fall down the stairs with loss of consciousness, patient was discharged home and came back March 13 as he has severe right sided chest pain, CT of the chest shows fracture in the right fifth, sixth, seventh ribs with right middle lobe and lower lobe infiltrates versus atelectasis, he was discharged with p.o. doxycycline. Today CT head was negative and the chest x-ray still shows the multiple fractures. 1 L IV fluid given in the ED. Past Medical History Cardiac Medical History: Reports: Hyperlipidema, Hypertension Endocrine Medical History: Reports: Diabetes Mellitus Type 2 - Patient has been diabetic since late 2014. Musculoskeltal Medical History: Reports: Other - Chronic back pain Past Surgical History Past Surgical History: Reports: Herniorrhaphy, Orthopedic Surgery - Right knee ACL repair Social History Information Source: Patient Lives with: Alone Smoking Status: Never Smoker Frequency of Alcohol Use: Heavy Last Alcohol Use: 03/15/18 Hx Recreational Drug Use: No Hx Prescription Drug Abuse: No Family History Family History: Reviewed & Not Pertinent Parental Family History Reviewed: No - Unable to obtain Children Family History Reviewed: NA Sibling(s) Family History Reviewed.: NA Medication/Allergy Home Medications: Prednisone [Deltasone 10 mg Tablet] 10 mg PO ASDIR PRN #21 tablet 11/16/17 Doxycycline Hyclate 100 mg PO BID #20 capsule 03/13/18 Allergies/Adverse Reactions: gabapentin [From Neurontin] Allergy (Verified 03/11/18 11:41) Review of Systems Review of Systems: Unable to obtain reliable information Physical Exam Additional comments: General appearance: Well-developed, confused, agitated trying to get off the bed , tremulous Head: Normocephalic Eyes: PEERL, EOMI, vision is grossly intact. Ears: External auditory canal and tympanic membranes clear, hearing grossly intact. Nose: No nasal discharge. Throat: Oral cavity and pharynx normal. No inflammation, swelling, exudate or lesions. Neck: Neck supple, nontender without lymphadenopathy, masses or thyromegaly. Cardiac: Normal S1 and S2. No S3, S4 or murmurs. Rhythm is regular. There is no peripheral edema, cyanosis or pallor. Extremities are warm and well perfused. Capillary refill is less than 2 seconds. No carotid bruits. Lungs: Clear to auscultation and percussion without rales, rhonchi, wheezing or diminished breath sounds. Not using accessory muscles. Abdomen: Positive bowel sounds. Soft. Nondistended, nontender. No guarding or rebound. No masses. No hepatosplenomegaly Extremities: No significant deformity or joint abnormality. No edema. Peripheral pulses intact. No varicosities. Neurological: Cranial nerves II through XII grossly intact. Stiffness on upper and lower extremities. Tremors in both hands. Confusion Skin: Skin normal color, texture and turgor with no lesions or eruptions, warm and dry. Psychiatric: The mental examination revealed the patient was oriented to person , could not tell me the year but not the month, date or president, tells me that is Obama. Results Laboratory Results: 03/14/18 03/14/18 03/14/18 22:57 22:57 23:23 WBC 11.1 H RBC 4.37 Hgb 13.1 L Hct 37.6 L MCV 86 MCH 30.0 MCHC 34.9 RDW 12.7 Plt Count 245 Seg Neutrophils % 74.8 Lymphocytes % 18.9 Monocytes % 4.4 Eosinophils % 1.6 Basophils % 0.3 Absolute Neutrophils 8.3 H Absolute Lymphocytes 2.1 Absolute Monocytes 0.5 Absolute Eosinophils 0.2 Absolute Basophils 0.0 Sodium 134.9 L Potassium 3.6 Chloride 99 Carbon Dioxide 23 Anion Gap 13 BUN 8 Creatinine 0.65 Est GFR ( Amer) > 60 Est GFR (Non-Af Amer) > 60 Glucose 228 H Lactic Acid 1.7 Calcium 9.8 Total Bilirubin 0.7 Direct Bilirubin 0.4 AST 35 ALT 117 H Alkaline Phosphatase 104 Total Protein 7.5 Albumin 4.3 Lipase 31.3 Salicylates < 1.0 L Acetaminophen < 10 L Serum Alcohol < 10 Impressions: Chest X-Ray 03/14/18 22:47 FINDINGS/IMPRESSION: Multiple right-sided rib fractures are present, with atelectasis/contusion in the right lower lung zone and small right pleural effusion. Findings are better seen on recent CT scan dated 03/13/2018. No discernible pneumothorax. Left lung is clear. Normal cardiac silhouette. Head CT 03/14/18 23:28 IMPRESSION: No acute intracranial abnormality. Assessment & Plan - Diagnosis (1) Alcohol withdrawal Qualifiers: Complication of substance-induced condition: with delirium Qualified Code(s ): F10.231 - Alcohol dependence with withdrawal delirium Is this a current diagnosis for this admission?: Yes Plan: Patient is on full alcohol withdrawal and I anticipate that the patient will go into Delirium Trem[place], we will transfer the patient to ICU for close monitoring. I will start the patient on diazepam 10 mg p.o. every 8 hours, Ativan 2 mg IV every 2 hours as needed for agitation. I will start the patient on Depakote ER 250 mg daily for agitation. Banana bag has been ordered along with thiamine to 50 mg IV every 8 hours. Multivitamins and folic acid p.o. IV fluids. Patient will need to leave the hospital with information for AA as seems that he is willing to quit drinking. (2) Diabetes mellitus type 2 in obese Is this a current diagnosis for this admission?: Yes Plan: I unaware if the patient is on any home medication. Will place the patient on Accu-Cheks every 4 hours with insulin regular sliding scale and hypoglycemia protocol. (3) Multiple rib fractures Qualifiers: Encounter type: initial encounter Fracture type: closed Laterality: right Qualified Code(s): S22.41XA - Multiple fractures of ribs, right side, initial encounter for closed fracture Is this a current diagnosis for this admission?: Yes Plan: Currently patient is not complaining of any pain, incentive spirometry when appropriate. Pain medication if needed. (4) Abnormal chest CT Is this a current diagnosis for this admission?: Yes Plan: CT of the chest done on 03/13 shows right middle lobar and right lower lobe infiltrates versus atelectasis, the time patient was discharged with p.o. doxycycline, currently patient does not have any respiratory symptoms, no fever or leukocytosis. I will hold on give him antibiotics for now. - Time Time Spent: 30 to 50 Minutes - Inpatient Certification Based on my medical assessment, after consideration of the patient's comorbidities, presenting symptoms, or acuity I expect that the services needed warrant INPATIENT care.: Yes I certify that my determination is in accordance with my understanding of Medicare's requirements for reasonable and necessary INPATIENT services [42 CFR 412.3e].: Yes Medical Necessity: Risk of Complication if Not Cared For in Hospital
[2018-03-15 04:13] LABS: ABSOLUTE BASOPHILS # (AUTO) 0.1 10^3/uL (0.0-0.2); ABSOLUTE EOSINOPHILS # (AUTO) 0.2 10^3/uL (0.0-0.6); ABSOLUTE LYMPHOCYTES (AUTO) 2.1 10^3/uL (0.5-4.7); ABSOLUTE MONOCYTES (AUTO) 0.5 10^3/uL (0.1-1.4); ABSOLUTE NEUT (AUTO) 6.5 10^3/uL (1.7-8.2); BASOPHILS % (AUTO) 0.6 % (0-2); EOSINOPHILS % (AUTO) 2.1 % (0-6); HEMATOCRIT 36.4 % (37.9-51.0); HEMOGLOBIN 12.5 g/dL (13.5-17.0); LYMPHOCYTES % (AUTO) 22.5 % (13-45); MEAN CORPUSCULAR HEMOGLOBIN 29.8 pg (27.0-33.4); MEAN CORPUSCULAR HGB CONC 34.4 g/dL (32.0-36.0); MEAN CORPUSCULAR VOLUME 87 fl (80-97); MONOCYTES % (AUTO) 5.8 % (3-13); PLATELET COUNT 219 10^3/uL (150-450); RED BLOOD COUNT 4.19 10^6/uL (4.35-5.55); RED CELL DISTRIBUTION WIDTH 12.8 % (11.5-14.0); TOTAL CELLS COUNTED % (AUTO) 100 %; WHITE BLOOD COUNT 9.4 10^3/uL (4.0-10.5)
[2018-03-15 04:19] LABS: PROTHROMBIN TIME 13.7 SEC (11.4-15.4)
[2018-03-15 04:20] LABS: PARTIAL THROMBOPLASTIN TIME 28.5 SEC (23.5-35.8)
[2018-03-15 04:27] LABS: ALANINE AMINOTRANSFERASE 106 U/L (21-72); ALBUMIN 4.1 g/dL (3.5-5.0); ALKALINE PHOSPHATASE 102 U/L (38-126); ANION GAP 11 (5-19); ASPARTATE AMINO TRANSFERASE 30 U/L (17-59); BILIRUBIN,DIRECT 0.5 mg/dL (0.0-0.4); BILIRUBIN,TOTAL 0.7 mg/dL (0.2-1.3); BLOOD UREA NITROGEN 8 mg/dL (7-20); CALCIUM 9.4 mg/dL (8.4-10.2); CARBON DIOXIDE 25 mmol/L (22-30); CHLORIDE 100 mmol/L (98-107); GLUCOSE 235 mg/dL (75-110); POTASSIUM 3.6 mmol/L (3.6-5.0); TOTAL PROTEIN 7.1 g/dL (6.3-8.2)
[2018-03-15 04:48] LABS: URINE AMPHETAMINES SCREEN NEGATIVE; URINE BARBITURATES SCREEN NEGATIVE; URINE BENZODIAZEPINES SCREEN NEGATIVE; URINE COCAINE SCREEN NEGATIVE; URINE MARIJUANA (THC) SCREEN NEGATIVE; URINE METHADONE SCREEN NEGATIVE; URINE PHENCYCLIDINE SCREEN NEGATIVE
[2018-03-15] MEDS: HYDROMORPHONE HCL INJ/PF 2 MG/ML AMPULE IV PRN ×3 (05:01→11:32)
[2018-03-15] MEDS: NORMAL SALINE 1000 ML 1,000 ML IV PRN ×2 (05:26→18:27)
[2018-03-15] MEDS: INSULIN REG, HUMAN 100 UNIT/ML 3 ML VIAL (PYX) SUBCUT PRN ×2 (06:25→12:09)
[2018-03-15] MEDS: DIAZEPAM 5 MG TABLET PO SCH ×3 (06:26→21:44)
[2018-03-15] MEDS ORDERED: OXYCODONE-ACETAMINOPHEN 5-325 MG TABLET PO PRN (07:33)
[2018-03-15] MEDS ORDERED: MAGNESIUM SULFATE/D5W 1 GM/100 ML RTUPB IV ONE (08:00)
--- NOTE | 2018-03-15 08:18 | EKG REPORT ---
SEVERITY:- ABNORMAL ECG - SINUS TACHYCARDIA INCOMPLETE RIGHT BUNDLE BRANCH BLOCK : Confirmed by: Janie Ortiz MD 15-Mar-2018 08:17:49
[2018-03-15] MEDS: FOLIC ACID 1 MG TABLET PO SCH (09:14)
[2018-03-15] MEDS: MULTIVITAMIN TABLET PO SCH (09:14)
[2018-03-15] MEDS: LORAZEPAM INJ 2 MG/1 ML VIAL IV PRN ×4 (09:14→21:44)
[2018-03-15] MEDS: ENOXAPARIN SODIUM INJ 40 MG/0.4 ML DISP.SYRIN SUBCUT SCH (09:16)
[2018-03-15] MEDS ORDERED: NORMAL SALINE 1000 ML 1,000 ML with POTASSIUM CHLORIDE 20 MEQ, MAGNESIUM SULFATE 8 MEQ,... IV SCH ×10 (10:00→18:00)
[2018-03-15] MEDS ORDERED: THIAMINE HCL 500 MG in NORMAL SALINE 250 ML IV SCH ×2 (10:00)
[2018-03-15] MEDS: NORMAL SALINE 1000 ML 1,000 ML with POTASSIUM CHLORIDE 20 MEQ, MAGNESIUM SULFATE 8 MEQ,... IV SCH ×5 (11:05)
[2018-03-15] MEDS ORDERED: (PENDING PHARMACY ID) (Hydroxyzine Hcl [Hydroxyzine Hcl] 25 MG) PO PRN (14:43)
--- NOTE | 2018-03-15 14:43 | PDOC PROGRESS REPORT ---
Subjective Progress Note for:: 03/15/18 Subjective:: Patient was in our facility on March 11 status post fall down the stairs with loss of consciousness, patient was discharged home and came back March 13 as he has severe right sided chest pain, CT of the chest shows fracture in the right fifth, sixth, seventh ribs with right middle lobe and lower lobe infiltrates versus atelectasis, he was discharged with p.o. doxycycline. Today CT head was negative and the chest x-ray still shows the multiple fractures. Complain of right-sided chest wall pain. Aware of his alcohol abuse and wants to try to be alcohol free. Reason For Visit: ALCOHOL WITHDRAWAL Physical Exam Vital Signs: Temp Pulse Resp BP Pulse Ox 97.5 F 90 15 111/88 H 92 03/15/18 14:00 03/15/18 14:00 03/15/18 14:15 03/15/18 14:15 03/15/18 14:15 Intake & Output 03/14/18 03/15/18 03/16/18 06:59 06:59 06:59 Intake Total 1000 360 Output Total 1700 1365 Balance -700 -1005 Weight 105.6 kg General appearance: PRESENT: no acute distress, well-nourished Head exam: PRESENT: atraumatic, normocephalic Eye exam: PRESENT: conjunctiva pink, EOMI, PERRLA. ABSENT: scleral icterus Ear exam: PRESENT: normal external ear exam Mouth exam: PRESENT: moist, tongue midline Neck exam: ABSENT: carotid bruit, JVD, lymphadenopathy, thyromegaly Respiratory exam: PRESENT: clear to auscultation amarilis. ABSENT: rales, rhonchi, wheezes Cardiovascular exam: PRESENT: RRR. ABSENT: diastolic murmur, rubs, systolic murmur Pulses: PRESENT: normal dorsalis pedis pul Vascular exam: PRESENT: normal capillary refill GI/Abdominal exam: PRESENT: normal bowel sounds, soft. ABSENT: distended, guarding, mass, organolmegaly, rebound, tenderness Rectal exam: PRESENT: deferred Extremities exam: PRESENT: full ROM. ABSENT: calf tenderness, clubbing, pedal edema Neurological exam: PRESENT: alert, awake, oriented to person, oriented to place , oriented to time, oriented to situation, CN II-XII grossly intact, other - mild asterexis. ABSENT: motor sensory deficit Psychiatric exam: PRESENT: appropriate affect, normal mood. ABSENT: homicidal ideation, suicidal ideation Skin exam: PRESENT: dry, intact, warm. ABSENT: cyanosis, rash Results Laboratory Results: 03/15/18 04:03 03/15/18 04:03 03/15/18 03/15/18 04:03 04:03 WBC 9.4 RBC 4.19 L Hgb 12.5 L Hct 36.4 L MCV 87 MCH 29.8 MCHC 34.4 RDW 12.8 Plt Count 219 Seg Neutrophils % 69.0 Lymphocytes % 22.5 Monocytes % 5.8 Eosinophils % 2.1 Basophils % 0.6 Absolute Neutrophils 6.5 Absolute Lymphocytes 2.1 Absolute Monocytes 0.5 Absolute Eosinophils 0.2 Absolute Basophils 0.1 Sodium 136.0 L Potassium 3.6 Chloride 100 Carbon Dioxide 25 Anion Gap 11 BUN 8 Creatinine 0.69 Est GFR ( Amer) > 60 Est GFR (Non-Af Amer) > 60 Glucose 235 H Calcium 9.4 Phosphorus 3.0 Magnesium 1.8 Total Bilirubin 0.7 AST 30 ALT 106 H Alkaline Phosphatase 102 Total Protein 7.1 Albumin 4.1 Impressions: Chest X-Ray 03/14/18 22:47 FINDINGS/IMPRESSION: Multiple right-sided rib fractures are present, with atelectasis/contusion in the right lower lung zone and small right pleural effusion. Findings are better seen on recent CT scan dated 03/13/2018. No discernible pneumothorax. Left lung is clear. Normal cardiac silhouette. Head CT 03/14/18 23:28 IMPRESSION: No acute intracranial abnormality. Assessment & Plan - Diagnosis (1) Alcohol withdrawal Qualifiers: Complication of substance-induced condition: with delirium Qualified Code(s ): F10.231 - Alcohol dependence with withdrawal delirium Is this a current diagnosis for this admission?: Yes (2) Diabetes mellitus type 2 in obese Is this a current diagnosis for this admission?: Yes (3) Contusion of rib on right side Qualifiers: Encounter type: initial encounter Qualified Code(s): S20.211A - Contusion of right front wall of thorax, initial encounter Is this a current diagnosis for this admission?: Yes (4) Fall Qualifiers: Encounter type: subsequent encounter Qualified Code(s): W19.XXXD - Unspecified fall, subsequent encounter Is this a current diagnosis for this admission?: Yes (5) Multiple rib fractures Qualifiers: Encounter type: initial encounter Fracture type: closed Laterality: right Qualified Code(s): S22.41XA - Multiple fractures of ribs, right side, initial encounter for closed fracture Is this a current diagnosis for this admission?: Yes Plan: Status post multiple falls. Control of pain - Time Time Spent with patient: 15-24 minutes Medications reviewed and adjusted accordingly: Yes Anticipated discharge: Home Within: within 72 hours - Inpatient Certification Based on my medical assessment, after consideration of the patient's comorbidities, presenting symptoms, or acuity I expect that the services needed warrant INPATIENT care.: Yes Medical Necessity: Need For Continuous Telemetry Monitoring, Need for Pain Control, Risk of Complication if Not Cared For in Hospital
[2018-03-15] MEDS ORDERED: HYDROXYZINE PAMOATE 25 MG CAPSULE PO PRN (14:51)
[2018-03-15] MEDS: HYDROCODONE/ACETAMINOPHEN 10-325 MG TABLET PO SCH ×2 (17:02→21:43)
[2018-03-15] MEDS: HUM INSULIN NPH/REG INSULIN HM 100 UNIT/1 ML 3 ML SUBCUT SCH (17:04)
[2018-03-15] MEDS: DIVALPROEX SODIUM 250 MG TAB.SR.24H PO SCH (21:51)
[2018-03-16] MEDS: LORAZEPAM INJ 2 MG/1 ML VIAL IV PRN ×5 (00:18→21:23)
[2018-03-16] MEDS: INSULIN REG, HUMAN 100 UNIT/ML 3 ML VIAL (PYX) SUBCUT PRN ×2 (00:34→13:23)
[2018-03-16] MEDS: NORMAL SALINE 1000 ML 1,000 ML IV PRN ×2 (01:19→09:49)
[2018-03-16] MEDS: HYDROCODONE/ACETAMINOPHEN 10-325 MG TABLET PO SCH ×4 (02:55→21:22)
[2018-03-16 04:16] LABS: ABSOLUTE BASOPHILS # (AUTO) 0.1 10^3/uL (0.0-0.2); ABSOLUTE EOSINOPHILS # (AUTO) 0.4 10^3/uL (0.0-0.6); ABSOLUTE LYMPHOCYTES (AUTO) 2.6 10^3/uL (0.5-4.7); ABSOLUTE MONOCYTES (AUTO) 0.5 10^3/uL (0.1-1.4); BASOPHILS % (AUTO) 0.9 % (0-2); HEMATOCRIT 35.4 % (37.9-51.0); HEMOGLOBIN 12.4 g/dL (13.5-17.0); LYMPHOCYTES % (AUTO) 34.7 % (13-45); MEAN CORPUSCULAR HEMOGLOBIN 30.4 pg (27.0-33.4); MEAN CORPUSCULAR HGB CONC 34.8 g/dL (32.0-36.0); MEAN CORPUSCULAR VOLUME 87 fl (80-97); MONOCYTES % (AUTO) 6.3 % (3-13); PLATELET COUNT 221 10^3/uL (150-450); RED BLOOD COUNT 4.06 10^6/uL (4.35-5.55); RED CELL DISTRIBUTION WIDTH 12.8 % (11.5-14.0); SEGMENTED NEUTROPHILS % (AUTO) 53.1 % (42-78); TOTAL CELLS COUNTED % (AUTO) 100 %; WHITE BLOOD COUNT 7.6 10^3/uL (4.0-10.5)
[2018-03-16 04:36] LABS: ANION GAP 9 (5-19); BLOOD UREA NITROGEN 9 mg/dL (7-20); CALCIUM 8.7 mg/dL (8.4-10.2); CARBON DIOXIDE 20 mmol/L (22-30); CHLORIDE 109 mmol/L (98-107); GLUCOSE 146 mg/dL (75-110); POTASSIUM 3.8 mmol/L (3.6-5.0); SODIUM 137.9 mmol/L (137-145)
[2018-03-16] MEDS: KETOROLAC TROMETHAMINE INJ/PF 30 MG/1 ML SDV IV PRN ×3 (06:06→18:12)
[2018-03-16] MEDS: DIAZEPAM 5 MG TABLET PO SCH ×3 (06:06→21:23)
[2018-03-16] MEDS: AMITRIPTYLINE HCL 50 MG TABLET PO SCH (09:47)
[2018-03-16] MEDS: ENOXAPARIN SODIUM INJ 40 MG/0.4 ML DISP.SYRIN SUBCUT SCH (09:47)
[2018-03-16] MEDS: MULTIVITAMIN TABLET PO SCH (09:47)
[2018-03-16] MEDS: FOLIC ACID 1 MG TABLET PO SCH (09:48)
[2018-03-16] MEDS: HUM INSULIN NPH/REG INSULIN HM 100 UNIT/1 ML 3 ML SUBCUT SCH ×2 (09:48→17:18)
--- NOTE | 2018-03-16 15:47 | PDOC PROGRESS REPORT ---
Subjective Progress Note for:: 03/16/18 Subjective:: Patient was in our facility on March 11 status post fall down the stairs with loss of consciousness, patient was discharged home and came back March 13 as he has severe right sided chest pain, CT of the chest shows fracture in the right fifth, sixth, seventh ribs with right middle lobe and lower lobe infiltrates versus atelectasis, he was discharged with p.o. doxycycline. Today CT head was negative and the chest x-ray still shows the multiple fractures. Complain of right-sided chest wall pain. Aware of his alcohol abuse and wants to try to be alcohol free. Extensive discussions with patient's brother today. He had been living with his brother and his brother was warm the called EMS. Patient appears to have a lot of psychological issues as well as psychiatric and polysubstance abuse. It appears at this time that he will need psychiatry evaluation to help us sort out all the different aspects of his abuse. It appears he will also need inpatient rehabilitation. His last one was at a [facility] in [place]. I have encouraged his brother to look into the [facility] facility in [place] which appears to be the closest. I have also discussed with [facility] social services specialist and a psychiatric consult has been requested. Reason For Visit: ALCOHOL WITHDRAWAL Physical Exam Vital Signs: Temp Pulse Resp BP Pulse Ox 97.7 F 79 22 H 139/88 H 98 03/16/18 14:00 03/16/18 14:00 03/16/18 14:00 03/16/18 14:00 03/16/18 14:00 Intake & Output 03/15/18 03/16/18 03/17/18 06:59 06:59 06:59 Intake Total 1000 2360 1414 Output Total 1700 4690 1050 Balance -700 -2330 364 Weight 105.6 kg 109.2 kg General appearance: PRESENT: no acute distress, obese, well-developed, well- nourished Head exam: PRESENT: atraumatic, normocephalic Eye exam: PRESENT: conjunctiva pink, EOMI, PERRLA. ABSENT: scleral icterus Ear exam: PRESENT: normal external ear exam Mouth exam: PRESENT: moist, tongue midline Neck exam: ABSENT: carotid bruit, JVD, lymphadenopathy, thyromegaly Respiratory exam: PRESENT: clear to auscultation amarilis. ABSENT: rales, rhonchi, wheezes Cardiovascular exam: PRESENT: RRR. ABSENT: diastolic murmur, rubs, systolic murmur Pulses: PRESENT: normal dorsalis pedis pul Vascular exam: PRESENT: normal capillary refill GI/Abdominal exam: PRESENT: normal bowel sounds, soft. ABSENT: distended, guarding, mass, organolmegaly, rebound, tenderness Rectal exam: PRESENT: deferred Extremities exam: PRESENT: full ROM. ABSENT: calf tenderness, clubbing, pedal edema Musculoskeletal exam: PRESENT: other - R sided rib cage pain Neurological exam: PRESENT: alert, awake, oriented to person, oriented to place , oriented to time, oriented to situation, CN II-XII grossly intact, other - no asterexis. ABSENT: motor sensory deficit Psychiatric exam: PRESENT: appropriate affect, normal mood. ABSENT: homicidal ideation, suicidal ideation Skin exam: PRESENT: dry, intact, warm. ABSENT: cyanosis, rash Results Laboratory Results: 03/16/18 03:54 03/16/18 03:54 03/16/18 03/16/18 03:54 03:54 WBC 7.6 RBC 4.06 L Hgb 12.4 L Hct 35.4 L MCV 87 MCH 30.4 MCHC 34.8 RDW 12.8 Plt Count 221 Seg Neutrophils % 53.1 Lymphocytes % 34.7 Monocytes % 6.3 Eosinophils % 5.0 Basophils % 0.9 Absolute Neutrophils 4.0 Absolute Lymphocytes 2.6 Absolute Monocytes 0.5 Absolute Eosinophils 0.4 Absolute Basophils 0.1 Sodium 137.9 Potassium 3.8 Chloride 109 H Carbon Dioxide 20 L Anion Gap 9 BUN 9 Creatinine 0.65 Est GFR ( Amer) > 60 Est GFR (Non-Af Amer) > 60 Glucose 146 H Calcium 8.7 Impressions: Chest X-Ray 03/14/18 22:47 FINDINGS/IMPRESSION: Multiple right-sided rib fractures are present, with atelectasis/contusion in the right lower lung zone and small right pleural effusion. Findings are better seen on recent CT scan dated 03/13/2018. No discernible pneumothorax. Left lung is clear. Normal cardiac silhouette. Head CT 03/14/18 23:28 IMPRESSION: No acute intracranial abnormality. Assessment & Plan - Diagnosis (1) Alcohol withdrawal Qualifiers: Complication of substance-induced condition: with unspecified complication Qualified Code(s): F10.239 - Alcohol dependence with withdrawal, unspecified Is this a current diagnosis for this admission?: Yes Plan: Patient appears to be relatively calm with no evidence of full-blown withdrawal symptoms. Of note despite his reported heavy use of alcohol his liver function test just barely abnormal. His magnesium phosphorus and red blood cell indices also all relatively within normal. Patient's total protein is also within normal. (2) Diabetes mellitus type 2 in obese Is this a current diagnosis for this admission?: Yes (3) Contusion of rib on right side Qualifiers: Encounter type: subsequent encounter Qualified Code(s): S20.211D - Contusion of right front wall of thorax, subsequent encounter Is this a current diagnosis for this admission?: Yes Plan: Pain control (4) Fall Qualifiers: Encounter type: subsequent encounter Qualified Code(s): W19.XXXD - Unspecified fall, subsequent encounter Is this a current diagnosis for this admission?: Yes (5) Multiple rib fractures Qualifiers: Encounter type: initial encounter Fracture type: closed Laterality: right Qualified Code(s): S22.41XA - Multiple fractures of ribs, right side, initial encounter for closed fracture Is this a current diagnosis for this admission?: Yes - Time Time Spent with patient: 15-24 minutes Medications reviewed and adjusted accordingly: Yes Anticipated discharge: Other Within: when bed available - Plan Summary Plan Summary: He can be moved out of the intensive care unit if need arises for a bed.
[2018-03-16] MEDS: NORMAL SALINE 1000 ML 1,000 ML with POTASSIUM CHLORIDE 20 MEQ, MAGNESIUM SULFATE 8 MEQ,... IV SCH ×5 (17:18)
[2018-03-16] MEDS: DIVALPROEX SODIUM 250 MG TAB.SR.24H PO SCH (21:27)
[2018-03-17] MEDS: HYDROCODONE/ACETAMINOPHEN 10-325 MG TABLET PO SCH ×4 (03:33→21:12)
[2018-03-17] MEDS: KETOROLAC TROMETHAMINE INJ/PF 30 MG/1 ML SDV IV PRN (03:34)
[2018-03-17] MEDS: LORAZEPAM INJ 2 MG/1 ML VIAL IV PRN ×5 (03:34→20:09)
[2018-03-17] MEDS: NORMAL SALINE 1000 ML 1,000 ML IV PRN ×2 (03:40→12:38)
[2018-03-17] MEDS: DIAZEPAM 5 MG TABLET PO SCH ×3 (07:03→21:13)
[2018-03-17] MEDS: AMITRIPTYLINE HCL 50 MG TABLET PO SCH (09:30)
[2018-03-17] MEDS: MULTIVITAMIN TABLET PO SCH (09:30)
[2018-03-17] MEDS: FOLIC ACID 1 MG TABLET PO SCH (09:30)
[2018-03-17] MEDS: ENOXAPARIN SODIUM INJ 40 MG/0.4 ML DISP.SYRIN SUBCUT SCH (09:31)
[2018-03-17] MEDS: HUM INSULIN NPH/REG INSULIN HM 100 UNIT/1 ML 3 ML SUBCUT SCH ×2 (09:31→17:10)
[2018-03-17] MEDS: INSULIN REG, HUMAN 100 UNIT/ML 3 ML VIAL (PYX) SUBCUT PRN (11:20)
[2018-03-17] MEDS: HYDROMORPHONE HCL INJ/PF 2 MG/ML AMPULE IV PRN ×2 (12:37→15:37)
--- NOTE | 2018-03-17 12:39 | PDOC PROGRESS REPORT ---
Subjective Progress Note for:: 03/17/18 Subjective:: Patient was in our facility on March 11 status post fall down the stairs with loss of consciousness, patient was discharged home and came back March 13 as he has severe right sided chest pain, CT of the chest shows fracture in the right fifth, sixth, seventh ribs with right middle lobe and lower lobe infiltrates versus atelectasis, he was discharged with p.o. doxycycline. Today CT head was negative and the chest x-ray still shows the multiple fractures. Complain of right-sided chest wall pain. Aware of his alcohol abuse and wants to try to be alcohol free. Extensive discussions with patient's brother today. He had been living with his brother and his brother was warm the called EMS. Patient appears to have a lot of psychological issues as well as psychiatric and polysubstance abuse. It appears at this time that he will need psychiatry evaluation to help us sort out all the different aspects of his abuse. It appears he will also need inpatient rehabilitation. His last one was at [facility] in [place]. Psychiatry consult still pending. Patient has really not undergone any active withdrawal symptoms. He continues to complain of pain on his right rib cage. He is hemodynamically stable and so at this point I would transfer him out of the intensive care unit. Reason For Visit: ALCOHOL WITHDRAWAL Physical Exam Vital Signs: Temp Pulse Resp BP Pulse Ox 97.5 F 75 21 H 140/100 H 95 03/17/18 11:29 03/17/18 08:00 03/17/18 10:00 03/17/18 09:22 03/17/18 09:22 Intake & Output 03/16/18 03/17/18 03/18/18 06:59 06:59 06:59 Intake Total 5478 3136 750 Output Total 6876 8035 2200 Balance -1307 -451 -1450 Weight 109.2 kg 111.8 kg General appearance: PRESENT: no acute distress, well-developed, well-nourished Head exam: PRESENT: atraumatic, normocephalic Eye exam: PRESENT: conjunctiva pink, EOMI, PERRLA. ABSENT: scleral icterus Ear exam: PRESENT: normal external ear exam Mouth exam: PRESENT: moist, tongue midline Neck exam: ABSENT: carotid bruit, JVD, lymphadenopathy, thyromegaly Respiratory exam: PRESENT: clear to auscultation amarilis, decreased breath sounds. ABSENT: rales, rhonchi, wheezes Cardiovascular exam: PRESENT: RRR. ABSENT: diastolic murmur, rubs, systolic murmur Pulses: PRESENT: normal dorsalis pedis pul Vascular exam: PRESENT: normal capillary refill GI/Abdominal exam: PRESENT: normal bowel sounds, soft. ABSENT: distended, guarding, mass, organolmegaly, rebound, tenderness Rectal exam: PRESENT: deferred Extremities exam: PRESENT: full ROM. ABSENT: calf tenderness, clubbing, pedal edema Neurological exam: PRESENT: alert, awake, oriented to person, oriented to place , oriented to time, CN II-XII grossly intact. ABSENT: motor sensory deficit Psychiatric exam: PRESENT: appropriate affect, normal mood. ABSENT: homicidal ideation, suicidal ideation Skin exam: PRESENT: dry, intact, warm. ABSENT: cyanosis, rash Results Laboratory Results: 03/16/18 03:54 03/16/18 03:54 Impressions: Chest X-Ray 03/14/18 22:47 FINDINGS/IMPRESSION: Multiple right-sided rib fractures are present, with atelectasis/contusion in the right lower lung zone and small right pleural effusion. Findings are better seen on recent CT scan dated 03/13/2018. No discernible pneumothorax. Left lung is clear. Normal cardiac silhouette. Head CT 03/14/18 23:28 IMPRESSION: No acute intracranial abnormality. Assessment & Plan - Diagnosis (1) Alcohol withdrawal Qualifiers: Complication of substance-induced condition: with unspecified complication Qualified Code(s): F10.239 - Alcohol dependence with withdrawal, unspecified Is this a current diagnosis for this admission?: Yes Plan: Patient appears to be relatively calm with no evidence of full-blown withdrawal symptoms. Of note despite his reported heavy use of alcohol his liver function test just barely abnormal. His magnesium phosphorus and red blood cell indices also all relatively within normal. Patient's total protein is also within normal. There has been minimal evidence of DT (2) Diabetes mellitus type 2 in obese Is this a current diagnosis for this admission?: Yes (3) Contusion of rib on right side Qualifiers: Encounter type: subsequent encounter Qualified Code(s): S20.211D - Contusion of right front wall of thorax, subsequent encounter Is this a current diagnosis for this admission?: Yes Plan: Continue pain management (4) Fall Qualifiers: Encounter type: subsequent encounter Qualified Code(s): W19.XXXD - Unspecified fall, subsequent encounter Is this a current diagnosis for this admission?: Yes (5) Multiple rib fractures Qualifiers: Encounter type: initial encounter Fracture type: closed Laterality: right Qualified Code(s): S22.41XA - Multiple fractures of ribs, right side, initial encounter for closed fracture Is this a current diagnosis for this admission?: Yes - Time Time Spent with patient: 15-24 minutes Medications reviewed and adjusted accordingly: Yes Anticipated discharge: Acute Rehab - Inpatient Certification Based on my medical assessment, after consideration of the patient's comorbidities, presenting symptoms, or acuity I expect that the services needed warrant INPATIENT care.: Yes Medical Necessity: Significant Comorbidiites Make Outpatient Treatment Too Risky , Risk of Complication if Not Cared For in Hospital
[2018-03-17] MEDS ORDERED: PROMETHAZINE HCL INJ 25 MG/1 ML VIAL IV PRN (13:00)
[2018-03-17] MEDS: PREGABALIN 50 MG CAPSULE PO SCH ×2 (14:06→18:47)
--- NOTE | 2018-03-17 15:05 | Physician Advisory Note ---
Physician Advisor ProgressNote .: Pursuant to the plan for [facility], I have reviewed the medical record for this patient. Physician Advisor Statement: Please consider documenting, if you agree: 1. "Acute mild hyponatremia, likely due to ____, addressed w/___" (?IVF) Drex, CK
[2018-03-17] MEDS: LIDOCAINE 5% (700 MG) TRANSDERMAL ADH..PATCH TP SCH (17:25)
[2018-03-17] MEDS: ACETAMINOPHEN 325 MG TABLET PO PRN (20:08)
[2018-03-17] MEDS: DIVALPROEX SODIUM 250 MG TAB.SR.24H PO SCH (21:18)
[2018-03-18] MEDS: HYDROCODONE/ACETAMINOPHEN 10-325 MG TABLET PO SCH ×4 (03:00→21:22)
[2018-03-18] MEDS: DIAZEPAM 5 MG TABLET PO SCH ×3 (05:30→21:22)
[2018-03-18] MEDS: HUM INSULIN NPH/REG INSULIN HM 100 UNIT/1 ML 3 ML SUBCUT SCH ×2 (07:58→17:43)
[2018-03-18] MEDS: AMITRIPTYLINE HCL 50 MG TABLET PO SCH (07:58)
[2018-03-18] MEDS: LORAZEPAM INJ 2 MG/1 ML VIAL IV PRN ×4 (08:12→22:27)
[2018-03-18] MEDS: KETOROLAC TROMETHAMINE INJ/PF 30 MG/1 ML SDV IV PRN (09:11)
[2018-03-18] MEDS: MULTIVITAMIN TABLET PO SCH (09:13)
[2018-03-18] MEDS: FOLIC ACID 1 MG TABLET PO SCH (09:13)
[2018-03-18] MEDS: ENOXAPARIN SODIUM INJ 40 MG/0.4 ML DISP.SYRIN SUBCUT SCH (09:13)
[2018-03-18] MEDS: THIAMINE HCL 100 MG TABLET PO SCH (09:13)
[2018-03-18] MEDS: PREGABALIN 50 MG CAPSULE PO SCH ×3 (09:13→17:42)
[2018-03-18] MEDS: LIDOCAINE 5% (700 MG) TRANSDERMAL ADH..PATCH TP SCH (09:54)
--- NOTE | 2018-03-18 14:50 | PDOC PROGRESS REPORT ---
Subjective Progress Note for:: 03/18/18 Subjective:: Patient was in our facility on March 11 status post fall down the stairs with loss of consciousness, patient was discharged home and came back March 13 as he has severe right sided chest pain, CT of the chest shows fracture in the right fifth, sixth, seventh ribs with right middle lobe and lower lobe infiltrates versus atelectasis, he was discharged with p.o. doxycycline. Today CT head was negative and the chest x-ray still shows the multiple fractures. Complain of right-sided chest wall pain. Aware of his alcohol abuse and wants to try to be alcohol free. Extensive discussions with patient's brother today. He had been living with his brother and his brother was warm the called EMS. Patient appears to have a lot of psychological issues as well as psychiatric and polysubstance abuse. It appears at this time that he will need psychiatry evaluation to help us sort out all the different aspects of his abuse. It appears he will also need inpatient rehabilitation. [facility] [place]. Psychiatry consult still pending. Patient has really not undergone any active withdrawal symptoms. He continues to complain of pain on his right rib cage. He is hemodynamically stable. He is requesting Dilaudid for his pain. Patient appears to have stabilized actually while in hospital and according to nursing staff has been ambulating around with no issues. The problem will be with discharge planning. Discussed with Zulma director social service is extensively regarding this patient's plan of care. It appears his extended family is not willing to be responsible for him at this time although his brother who had been living with may be open to taking him back however he also expressed to me that think is best that patient finds his own accommodation. Awaiting input after discussion with brother to see if this patient can be safely discharge home or if he needs to be transferred to rehab. Reason For Visit: ALCOHOL WITHDRAWAL Physical Exam Vital Signs: Temp Pulse Resp BP Pulse Ox 98.2 F 76 14 149/94 H 98 03/18/18 08:00 03/18/18 08:00 03/18/18 08:00 03/18/18 08:00 03/18/18 08:00 Intake & Output 03/17/18 03/18/18 03/19/18 06:59 06:59 06:59 Intake Total 3134 2980 Output Total 3745 2200 Balance -611 780 Weight 111.8 kg 111.4 kg General appearance: PRESENT: no acute distress, obese, well-developed, well- nourished Head exam: PRESENT: atraumatic, normocephalic Eye exam: PRESENT: conjunctiva pink, EOMI, PERRLA. ABSENT: scleral icterus Ear exam: PRESENT: normal external ear exam Mouth exam: PRESENT: moist, tongue midline Neck exam: ABSENT: carotid bruit, JVD, lymphadenopathy, thyromegaly Respiratory exam: PRESENT: clear to auscultation amarilis. ABSENT: rales, rhonchi, wheezes Cardiovascular exam: PRESENT: RRR. ABSENT: diastolic murmur, rubs, systolic murmur Pulses: PRESENT: normal dorsalis pedis pul Vascular exam: PRESENT: normal capillary refill GI/Abdominal exam: PRESENT: normal bowel sounds, soft. ABSENT: distended, guarding, mass, organolmegaly, rebound, tenderness Rectal exam: PRESENT: deferred Extremities exam: PRESENT: full ROM. ABSENT: calf tenderness, clubbing, pedal edema Musculoskeletal exam: PRESENT: tenderness - Right rib cage Neurological exam: PRESENT: alert, awake, oriented to person, oriented to place , oriented to time, oriented to situation, CN II-XII grossly intact, other - no asterexis. ABSENT: motor sensory deficit Psychiatric exam: PRESENT: appropriate affect, normal mood. ABSENT: homicidal ideation, suicidal ideation Skin exam: PRESENT: dry, intact, warm. ABSENT: cyanosis, rash Results Laboratory Results: 03/16/18 03:54 03/16/18 03:54 Impressions: Chest X-Ray 03/14/18 22:47 FINDINGS/IMPRESSION: Multiple right-sided rib fractures are present, with atelectasis/contusion in the right lower lung zone and small right pleural effusion. Findings are better seen on recent CT scan dated 03/13/2018. No discernible pneumothorax. Left lung is clear. Normal cardiac silhouette. Head CT 03/14/18 23:28 IMPRESSION: No acute intracranial abnormality. Assessment & Plan - Diagnosis (1) Alcohol withdrawal Qualifiers: Complication of substance-induced condition: with unspecified complication Qualified Code(s): F10.239 - Alcohol dependence with withdrawal, unspecified Is this a current diagnosis for this admission?: Yes Plan: Continue his Benzodiazepine There has been minimal evidence of DT Psych eval still pending (2) Diabetes mellitus type 2 in obese Is this a current diagnosis for this admission?: Yes Plan: Continue SSI (3) Contusion of rib on right side Qualifiers: Encounter type: subsequent encounter Qualified Code(s): S20.211D - Contusion of right front wall of thorax, subsequent encounter Is this a current diagnosis for this admission?: Yes Plan: s/p fall, Continue pain management (4) Fall Qualifiers: Encounter type: subsequent encounter Qualified Code(s): W19.XXXD - Unspecified fall, subsequent encounter Is this a current diagnosis for this admission?: Yes (5) Multiple rib fractures Qualifiers: Encounter type: initial encounter Fracture type: closed Laterality: right Qualified Code(s): S22.41XA - Multiple fractures of ribs, right side, initial encounter for closed fracture Is this a current diagnosis for this admission?: Yes Plan: Judicious pain management - Time Time Spent with patient: 15-24 minutes Medications reviewed and adjusted accordingly: Yes Anticipated discharge: Other - Inpatient Certification Based on my medical assessment, after consideration of the patient's comorbidities, presenting symptoms, or acuity I expect that the services needed warrant INPATIENT care.: Yes Medical Necessity: Need Close Monitoring Due to Risk of Patient Decompensation, Need for Pain Control
[2018-03-18] MEDS: INSULIN REG, HUMAN 100 UNIT/ML 3 ML VIAL (PYX) SUBCUT PRN ×2 (17:42→21:22)
[2018-03-18] MEDS: DIVALPROEX SODIUM 250 MG TAB.SR.24H PO SCH (21:22)
[2018-03-18] MEDS: PHARMACY COMMUNICATION ORDER MC SCH (21:23)
[2018-03-19] MEDS: HYDROCODONE/ACETAMINOPHEN 10-325 MG TABLET PO SCH ×3 (03:05→21:10)
[2018-03-19] MEDS: LORAZEPAM INJ 2 MG/1 ML VIAL IV PRN (03:06)
[2018-03-19] MEDS: DIAZEPAM 5 MG TABLET PO SCH ×3 (05:06→21:10)
[2018-03-19 06:32] LABS: ABSOLUTE EOSINOPHILS # (AUTO) 0.5 10^3/uL (0.0-0.6); ABSOLUTE LYMPHOCYTES (AUTO) 2.4 10^3/uL (0.5-4.7); ABSOLUTE MONOCYTES (AUTO) 0.6 10^3/uL (0.1-1.4); ABSOLUTE NEUT (AUTO) 3.3 10^3/uL (1.7-8.2); BASOPHILS % (AUTO) 0.3 % (0-2); EOSINOPHILS % (AUTO) 6.8 % (0-6); HEMATOCRIT 37.3 % (37.9-51.0); HEMOGLOBIN 12.7 g/dL (13.5-17.0); LYMPHOCYTES % (AUTO) 35.5 % (13-45); MEAN CORPUSCULAR HEMOGLOBIN 29.7 pg (27.0-33.4); MEAN CORPUSCULAR HGB CONC 33.9 g/dL (32.0-36.0); MEAN CORPUSCULAR VOLUME 87 fl (80-97); MONOCYTES % (AUTO) 8.2 % (3-13); PLATELET COUNT 282 10^3/uL (150-450); RED BLOOD COUNT 4.27 10^6/uL (4.35-5.55); RED CELL DISTRIBUTION WIDTH 12.4 % (11.5-14.0); SEGMENTED NEUTROPHILS % (AUTO) 49.2 % (42-78); TOTAL CELLS COUNTED % (AUTO) 100 %; WHITE BLOOD COUNT 6.8 10^3/uL (4.0-10.5)
[2018-03-19 06:50] LABS: ANION GAP 7 (5-19); BLOOD UREA NITROGEN 9 mg/dL (7-20); CALCIUM 9.7 mg/dL (8.4-10.2); CARBON DIOXIDE 29 mmol/L (22-30); CHLORIDE 102 mmol/L (98-107); GLUCOSE 219 mg/dL (75-110); POTASSIUM 4.3 mmol/L (3.6-5.0); SODIUM 138.2 mmol/L (137-145)
[2018-03-19] MEDS ORDERED: HUM INSULIN NPH/REG INSULIN HM 100 UNIT/1 ML 3 ML SUBCUT SCH (09:10)
[2018-03-19] MEDS ORDERED: LORAZEPAM 1 MG TABLET PO PRN (09:30)
[2018-03-19] MEDS: ENOXAPARIN SODIUM INJ 40 MG/0.4 ML DISP.SYRIN SUBCUT SCH (09:58)
[2018-03-19] MEDS: FOLIC ACID 1 MG TABLET PO SCH (09:59)
[2018-03-19] MEDS: THIAMINE HCL 100 MG TABLET PO SCH (09:59)
[2018-03-19] MEDS: PREGABALIN 50 MG CAPSULE PO SCH ×3 (09:59→18:15)
[2018-03-19] MEDS: AMITRIPTYLINE HCL 50 MG TABLET PO SCH (09:59)
[2018-03-19] MEDS: LIDOCAINE 5% (700 MG) TRANSDERMAL ADH..PATCH TP SCH (10:11)
[2018-03-19] MEDS ORDERED: GLUCAGON,HUMAN RECOMB 1 MG INJ IM PRN (14:23)
[2018-03-19] MEDS ORDERED: DEXTROSE 50%-WATER 25 GM/50 ML DISP.SYRIN IV PRN ×2 (14:23)
[2018-03-19] MEDS ORDERED: DEXTROSE 40% GEL 15 GM TUBE PO PRN ×2 (14:23)
--- NOTE | 2018-03-19 14:27 | PDOC PROGRESS REPORT ---
Subjective Progress Note for:: 03/19/18 Subjective:: pt still with right chest discomfort with movement and coughing. Anxiety persists and he has nightmares. Eating and drinking fine. No constipation or abd pain. No dysuria. No fever or chillls. Reason For Visit: ALCOHOL WITHDRAWAL Physical Exam Vital Signs: Temp Pulse Resp BP Pulse Ox 98.2 F 70 18 154/87 H 99 03/18/18 23:09 03/18/18 23:09 03/18/18 23:09 03/18/18 23:09 03/18/18 23:09 Intake & Output 03/18/18 03/19/18 03/20/18 06:59 06:59 06:59 Intake Total 2980 1850 Output Total 2200 Balance 780 1850 Weight 111.4 kg 113.6 kg General appearance: PRESENT: no acute distress, cooperative, obese Head exam: PRESENT: atraumatic, normocephalic Eye exam: ABSENT: conjunctival injection, scleral icterus Ear exam: PRESENT: normal external ear exam Mouth exam: PRESENT: moist, neck supple Respiratory exam: PRESENT: chest wall tenderness, clear to auscultation amarilis, unlabored. ABSENT: rales, rhonchi, wheezes Cardiovascular exam: PRESENT: RRR. ABSENT: systolic murmur Pulses: PRESENT: normal radial pulses GI/Abdominal exam: PRESENT: normal bowel sounds, soft. ABSENT: distended, guarding, tenderness Rectal exam: PRESENT: deferred Extremities exam: ABSENT: pedal edema Neurological exam: PRESENT: alert, awake, oriented to person, oriented to place , oriented to situation, CN II-XII grossly intact Psychiatric exam: PRESENT: flat affect Skin exam: PRESENT: dry, intact, warm Results Laboratory Results: 03/19/18 05:57 03/19/18 05:57 03/19/18 03/19/18 05:57 05:57 WBC 6.8 RBC 4.27 L Hgb 12.7 L Hct 37.3 L MCV 87 MCH 29.7 MCHC 33.9 RDW 12.4 Plt Count 282 Seg Neutrophils % 49.2 Lymphocytes % 35.5 Monocytes % 8.2 Eosinophils % 6.8 H Basophils % 0.3 Absolute Neutrophils 3.3 Absolute Lymphocytes 2.4 Absolute Monocytes 0.6 Absolute Eosinophils 0.5 Absolute Basophils 0.0 Sodium 138.2 Potassium 4.3 Chloride 102 Carbon Dioxide 29 Anion Gap 7 BUN 9 Creatinine 0.76 Est GFR ( Amer) > 60 Est GFR (Non-Af Amer) > 60 Glucose 219 H Calcium 9.7 Impressions: Chest X-Ray 03/14/18 22:47 FINDINGS/IMPRESSION: Multiple right-sided rib fractures are present, with atelectasis/contusion in the right lower lung zone and small right pleural effusion. Findings are better seen on recent CT scan dated 03/13/2018. No discernible pneumothorax. Left lung is clear. Normal cardiac silhouette. Head CT 03/14/18 23:28 IMPRESSION: No acute intracranial abnormality. Assessment & Plan - Diagnosis (1) Alcohol withdrawal Qualifiers: Complication of substance-induced condition: with unspecified complication Qualified Code(s): F10.239 - Alcohol dependence with withdrawal, unspecified Is this a current diagnosis for this admission?: Yes Plan: Patient has a complex substance use history. 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 He has PTSD as well. He is now in alcohol withdrawal but is hemodynamically stable on Valium 10 mg p.o. 3 times daily and this will continue. He also has as needed Ativan available. (2) Chronic pain Is this a current diagnosis for this admission?: Yes Plan: Patient takes Datil twice daily, 20 mg of hydrocodone with each dose. Is on this with additional as needed oxycodone 5 mg p.o. every 6 hours as needed for his acute pain related to rib fractures. He is followed by a pain clinic at the [facility] as far as I can tell. (3) PTSD (post-traumatic stress disorder) Is this a current diagnosis for this admission?: Yes Plan: Multifactorial PTSD. He is followed by several [facility] physicians. He has nightmares. He takes alprazolam at home. Here he is on Valium and Ativan. (4) Alcohol use disorder Is this a current diagnosis for this admission?: Yes Plan: he has struggled with etoh use disorder. He is now in alcohol withdrawal. We will continue to risk reduction counselor towards abstinence. (5) Diabetes mellitus type 2 in obese Is this a current diagnosis for this admission?: Yes Plan: Patient takes regular insulin 30 units twice daily and so I have increased his insulin here to that dosing, his CBGs have been suboptimal. He is also now on an before meals at bedtime sliding scale short acting insulin. (6) Multiple rib fractures Qualifiers: Encounter type: initial encounter Fracture type: closed Laterality: right Qualified Code(s): S22.41XA - Multiple fractures of ribs, right side, initial encounter for closed fracture Is this a current diagnosis for this admission?: Yes Plan: This is causing acute pain for which he has as needed oxycodone to use in addition to his regular chronic Datil dosing. - Time Time Spent with patient: 35 or more minutes - Inpatient Certification Based on my medical assessment, after consideration of the patient's comorbidities, presenting symptoms, or acuity I expect that the services needed warrant INPATIENT care.: Yes I certify that my determination is in accordance with my understanding of Medicare's requirements for reasonable and necessary INPATIENT services [42 CFR 412.3e].: Yes Medical Necessity: Significant Comorbidiites Make Outpatient Treatment Too Risky , Need Close Monitoring Due to Risk of Patient Decompensation, Risk of Complication if Not Cared For in Hospital
[2018-03-19] MEDS: MULTIVITAMIN TABLET PO SCH (15:03)
[2018-03-19] MEDS: OXYCODONE HCL IR 5 MG TABLET PO PRN (15:18)
[2018-03-19] MEDS: INSULIN LISPRO 100 UNIT/ML 3 ML VIAL SUBCUT PRN ×2 (18:13→21:11)
[2018-03-19] MEDS: HUM INSULIN NPH/REG INSULIN HM 100 UNIT/1 ML 3 ML SUBCUT SCH (18:14)
[2018-03-19] MEDS: LORAZEPAM 1 MG TABLET PO PRN (18:25)
[2018-03-19] MEDS: DIVALPROEX SODIUM 250 MG TAB.SR.24H PO SCH (21:10)
[2018-03-19] MEDS: PHARMACY COMMUNICATION ORDER MC SCH (21:11)
[2018-03-20] MEDS: OXYCODONE HCL IR 5 MG TABLET PO PRN ×4 (02:37→22:18)
[2018-03-20] MEDS: LORAZEPAM 1 MG TABLET PO PRN ×3 (02:38→18:56)
[2018-03-20] MEDS: DIAZEPAM 5 MG TABLET PO SCH ×3 (05:00→21:25)
[2018-03-20] MEDS: HUM INSULIN NPH/REG INSULIN HM 100 UNIT/1 ML 3 ML SUBCUT SCH ×4 (07:32→17:02)
[2018-03-20] MEDS: AMITRIPTYLINE HCL 50 MG TABLET PO SCH (08:27)
[2018-03-20] MEDS: INSULIN LISPRO 100 UNIT/ML 3 ML VIAL SUBCUT PRN ×4 (08:27→21:27)
[2018-03-20] MEDS: THIAMINE HCL 100 MG TABLET PO SCH (10:45)
[2018-03-20] MEDS: HYDROCODONE/ACETAMINOPHEN 10-325 MG TABLET PO SCH ×2 (10:45→21:25)
[2018-03-20] MEDS: MULTIVITAMIN TABLET PO SCH (10:45)
[2018-03-20] MEDS: LIDOCAINE 5% (700 MG) TRANSDERMAL ADH..PATCH TP SCH (10:45)
[2018-03-20] MEDS: PREGABALIN 50 MG CAPSULE PO SCH ×3 (10:46→17:01)
[2018-03-20] MEDS: FOLIC ACID 1 MG TABLET PO SCH (10:46)
[2018-03-20] MEDS: ENOXAPARIN SODIUM INJ 40 MG/0.4 ML DISP.SYRIN SUBCUT SCH (10:47)
--- NOTE | 2018-03-20 15:21 | PDOC PROGRESS REPORT ---
Subjective Progress Note for:: 03/20/18 Subjective:: Patient states that he did not sleep well for a little while but then took a nap this morning. He is eating and drinking without difficulty. He is walking around the hallways without difficulty. He does tell me that right sided chest discomfort persists especially with laughing and coughing. His anxiety persists , this seems to be baseline. Per nursing staff there have been no adverse events overnight. Reason For Visit: ALCOHOL WITHDRAWAL Physical Exam Vital Signs: Temp Pulse Resp BP Pulse Ox 98.2 F 83 14 135/90 H 94 03/20/18 11:55 03/20/18 11:55 03/20/18 11:55 03/20/18 11:55 03/20/18 11:55 Intake & Output 03/19/18 03/20/18 03/21/18 06:59 06:59 06:59 Intake Total 1850 2780 Balance 1850 2780 Weight 113.6 kg 112.5 kg General appearance: PRESENT: no acute distress, cooperative, obese Head exam: PRESENT: atraumatic, normocephalic Eye exam: ABSENT: conjunctival injection, scleral icterus Mouth exam: PRESENT: moist Respiratory exam: PRESENT: clear to auscultation amarilis, unlabored. ABSENT: rales , rhonchi, wheezes Cardiovascular exam: PRESENT: RRR. ABSENT: systolic murmur Pulses: PRESENT: normal radial pulses GI/Abdominal exam: PRESENT: normal bowel sounds, soft. ABSENT: distended, firm , tenderness Rectal exam: PRESENT: deferred Gentrourinary exam: ABSENT: indwelling catheter Extremities exam: ABSENT: pedal edema Musculoskeletal exam: PRESENT: normal inspection Neurological exam: PRESENT: alert, awake, oriented to person, oriented to place , oriented to situation, CN II-XII grossly intact Psychiatric exam: PRESENT: anxious Skin exam: PRESENT: dry, intact, warm Results Laboratory Results: 03/19/18 05:57 03/19/18 05:57 Impressions: Chest X-Ray 03/14/18 22:47 FINDINGS/IMPRESSION: Multiple right-sided rib fractures are present, with atelectasis/contusion in the right lower lung zone and small right pleural effusion. Findings are better seen on recent CT scan dated 03/13/2018. No discernible pneumothorax. Left lung is clear. Normal cardiac silhouette. Head CT 03/14/18 23:28 IMPRESSION: No acute intracranial abnormality. Assessment & Plan - Diagnosis (1) Alcohol withdrawal Qualifiers: Complication of substance-induced condition: with unspecified complication Qualified Code(s): F10.239 - Alcohol dependence with withdrawal, unspecified Is this a current diagnosis for this admission?: Yes Plan: He is hemodynamically stable. I will start to wean his Valium. We will go from 10 mg p.o. every 8 to 7.5 mg p.o. every 8 hours. I will leave the as needed Ativan in place. We will continue to monitor closely. (2) PTSD (post-traumatic stress disorder) Is this a current diagnosis for this admission?: Yes Plan: Patient has significant PTSD. He is seen at the [facility] for this. We will recommend return to [facility] PTSD care. He takes a benzodiazepine at home for anxiety. Here he is on Valium for alcohol withdrawal and has as needed Ativan available. (3) Chronic pain Is this a current diagnosis for this admission?: Yes Plan: He is on [place] to 10 mg tabs every 12 hours for his chronic pain and that has been started here. (4) Alcohol use disorder Is this a current diagnosis for this admission?: Yes Plan: I spoke with the patient and his brother about this. This is a very difficult problem for the patient who has not been able to quit. He lives with his brother who is really caring for him at this time. Brother is extremely busy working with the wounded [employer] and travels [place] a bit [place] and in [place]. (5) Diabetes mellitus type 2 in obese Is this a current diagnosis for this admission?: Yes Plan: Patient is on twice daily regular insulin and sliding scale short acting insulin. Blood glucose is still not well controlled. I have increased his regular twice daily insulin to 35 units per dose. We will continue with sliding scale and will add pre-meal dose. Patient gets up to the vending machine quite frequently per nursing staff. (6) Multiple rib fractures Qualifiers: Encounter type: initial encounter Fracture type: closed Laterality: right Qualified Code(s): S22.41XA - Multiple fractures of ribs, right side, initial encounter for closed fracture Is this a current diagnosis for this admission?: Yes Plan: Has acute pain related to this. He is on oxycodone 5 mg tabs as needed. We have discussed at length that like to try to get him off of this opiate as we can given his history of substance abuse, also he is on a termite control servicer opiate. We will continue current oxycodone as is and hope that an increase is not needed. He does seem to be improving and his vital signs are not concerning. He is ambulating and moving around the bed without too much difficulty. - Time Time Spent with patient: 15-24 minutes Medications reviewed and adjusted accordingly: Yes - Inpatient Certification Based on my medical assessment, after consideration of the patient's comorbidities, presenting symptoms, or acuity I expect that the services needed warrant INPATIENT care.: Yes I certify that my determination is in accordance with my understanding of Medicare's requirements for reasonable and necessary INPATIENT services [42 CFR 412.3e].: Yes Medical Necessity: Need Close Monitoring Due to Risk of Patient Decompensation, Risk of Complication if Not Cared For in Hospital - Plan Summary Plan Summary: This is an unfortunate patient who has an alcohol use disorder and monitored chronic opiate use for chronic back pain along with PTSD, anxiety. He has been living with his brother who works a lot and cannot take care of him as the patient needs. His brother is working with Zulma our welfare case worker to find a short-term rehab and then the plan is for the patient to have an aide in the [facility] home, [facility], these details are still being worked out.
[2018-03-20] MEDS: DIVALPROEX SODIUM 250 MG TAB.SR.24H PO SCH (21:25)
[2018-03-20] MEDS: PHARMACY COMMUNICATION ORDER MC SCH (21:29)
[2018-03-21] MEDS: LORAZEPAM 1 MG TABLET PO PRN ×2 (03:15→14:24)
[2018-03-21] MEDS: OXYCODONE HCL IR 5 MG TABLET PO PRN ×3 (04:42→20:29)
[2018-03-21 04:57] LABS: HEMATOCRIT 40.9 % (37.9-51.0); HEMOGLOBIN 13.8 g/dL (13.5-17.0); MEAN CORPUSCULAR HEMOGLOBIN 29.8 pg (27.0-33.4); MEAN CORPUSCULAR HGB CONC 33.8 g/dL (32.0-36.0); MEAN CORPUSCULAR VOLUME 88 fl (80-97); PLATELET COUNT 343 10^3/uL (150-450); RED BLOOD COUNT 4.63 10^6/uL (4.35-5.55); RED CELL DISTRIBUTION WIDTH 12.5 % (11.5-14.0)
[2018-03-21 05:25] LABS: ANION GAP 11 (5-19); BLOOD UREA NITROGEN 8 mg/dL (7-20); CALCIUM 10.3 mg/dL (8.4-10.2); CARBON DIOXIDE 29 mmol/L (22-30); CHLORIDE 103 mmol/L (98-107); GLUCOSE 143 mg/dL (75-110); POTASSIUM 4.7 mmol/L (3.6-5.0)
[2018-03-21] MEDS: DIAZEPAM 5 MG TABLET PO SCH ×3 (06:19→22:00)
[2018-03-21] MEDS: HUM INSULIN NPH/REG INSULIN HM 100 UNIT/1 ML 3 ML SUBCUT SCH ×2 (08:59→17:04)
[2018-03-21] MEDS: AMITRIPTYLINE HCL 50 MG TABLET PO SCH (08:59)
[2018-03-21] MEDS: ENOXAPARIN SODIUM INJ 40 MG/0.4 ML DISP.SYRIN SUBCUT SCH (09:03)
[2018-03-21] MEDS: HYDROCODONE/ACETAMINOPHEN 10-325 MG TABLET PO SCH ×2 (09:05→22:00)
[2018-03-21] MEDS: MULTIVITAMIN TABLET PO SCH (09:06)
[2018-03-21] MEDS: THIAMINE HCL 100 MG TABLET PO SCH (09:06)
[2018-03-21] MEDS: PREGABALIN 50 MG CAPSULE PO SCH ×3 (09:06→18:05)
[2018-03-21] MEDS: FOLIC ACID 1 MG TABLET PO SCH (09:06)
[2018-03-21] MEDS: LIDOCAINE 5% (700 MG) TRANSDERMAL ADH..PATCH TP SCH (09:07)
[2018-03-21] MEDS: INSULIN LISPRO 100 UNIT/ML 3 ML VIAL SUBCUT PRN ×2 (11:43→16:32)
--- NOTE | 2018-03-21 12:32 | PSYCHOLOGICAL NOTE ---
Psych Note - Psych Note Psych Note: Reason for Consult: substance abuse Patient disclosed that he came to [facility] via EMS because he took a "nasty fall." He reports that he has no mental health diagnosis and denies any prior suicide attempts. When asked if he has substance abuse history he denies but states " it is possible I drinking a beer too many sometimes." Patient denies suicidal and homicidal ideation reports living with his brother and is concerned about losing their home because the police will be up soon. He reports that they only received minor damage however his brother really wants [place] live [place] the [place]. Patient reports that he did receive outpatient therapy "a long time ago" but feels that it was not very helpful stating "you can talk and talk until your blue and never solve anything." He reports that he is a father of 3 sons and has been 3 times. 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 He states that it was an honorable discharge after serving 8 years in the [employer] in 4 years in the [employer]. He provides consent to speak with his brother, Pancho. Patient is alert and orientated to person, place, time and circumstance. Mood is euthymic with congruent affect. Patient denies suicidal and homicidal ideation. Delusions are absent behaviors congruent with an intact reality based presentation i.e. organized and linear thought process. Eye contact is fair. Conversational speech was within normal rate, tone and prosody. Intellectual abilities appear to be within the average range. Attention and concentration are good. Insight, judgment, impulse control are fair. Impression\\plan: It is noted the patient denies any mental health concerns however [facility] Patient gave consent for the behavioral health team to speak with his brother. At this time, patient does not meet IVC criteria per [place] GS 122C. Patient denies substance abuse history however there appears to be some indication that this is not correct as the patient himself even states that he may have had a beer too many at times. Receiving substance abuse treatment must be voluntary. Behavior health team will continue obtaining collateral information for a more accurate evaluation of this patient. Dr. Hernandez was consulted and care management this patient; attending physicians in agreement with recommendations and disposition. 03/22/2018 Behavioral health was able to get into contact with the PA. They disclosed the only medication the [facility] is currently [facility] Elavil 50mg QAM and 100QPM. Impression\\plan: Patient is cleared from acute psychiatric services. Patient continues to not meet IVC criteria per [place] GS 122C.
--- NOTE | 2018-03-21 17:17 | PDOC PROGRESS REPORT ---
Subjective Progress Note for:: 03/21/18 Subjective:: No adverse events overnight. He was lying in the bed under the blankets with his feet crossed at the end of the bed in his arms down by his side with his eyes half shut watching television when I came into the room. When he saw me, he immediately set up and started wincing, and said that the hydrocodone he was getting was just not getting it and he cried himself to sleep last night. He was asking if if he can have just one shot of Dilaudid. Some of the staff have told me that he has allegedly been asking everyone who comes in the room if he can have more pain medicine. He is not showing any signs of alcohol withdrawal. Reason For Visit: ALCOHOL WITHDRAWAL Physical Exam Vital Signs: Temp Pulse Resp BP Pulse Ox 97.9 F 85 20 136/93 H 98 03/21/18 16:27 03/21/18 16:27 03/21/18 16:27 03/21/18 16:27 03/21/18 16:27 Intake & Output 03/20/18 03/21/18 03/22/18 06:59 06:59 06:59 Intake Total 2780 1166 1853 Balance 2780 1166 1853 Weight 112.5 kg 112.8 kg General appearance: PRESENT: no acute distress, cooperative, obese Head exam: PRESENT: atraumatic, normocephalic Eye exam: ABSENT: conjunctival injection, scleral icterus Mouth exam: PRESENT: moist Respiratory exam: PRESENT: clear to auscultation amarilis, unlabored. ABSENT: rales , rhonchi, wheezes Cardiovascular exam: PRESENT: RRR. ABSENT: systolic murmur Pulses: PRESENT: normal radial pulses GI/Abdominal exam: PRESENT: normal bowel sounds, soft. ABSENT: distended, firm , tenderness Rectal exam: PRESENT: deferred Gentrourinary exam: ABSENT: indwelling catheter Extremities exam: ABSENT: pedal edema Musculoskeletal exam: PRESENT: normal inspection Neurological exam: PRESENT: alert, awake, oriented to person, oriented to place , oriented to situation, CN II-XII grossly intact Psychiatric exam: PRESENT: anxious Skin exam: PRESENT: dry, intact, warm Results Laboratory Results: 03/21/18 04:38 03/21/18 04:38 03/21/18 03/21/18 04:38 04:38 WBC 8.0 RBC 4.63 Hgb 13.8 Hct 40.9 MCV 88 MCH 29.8 MCHC 33.8 RDW 12.5 Plt Count 343 Sodium 143.0 Potassium 4.7 Chloride 103 Carbon Dioxide 29 Anion Gap 11 BUN 8 Creatinine 0.81 Est GFR ( Amer) > 60 Est GFR (Non-Af Amer) > 60 Glucose 143 H Calcium 10.3 H Impressions: Chest X-Ray 03/14/18 22:47 FINDINGS/IMPRESSION: Multiple right-sided rib fractures are present, with atelectasis/contusion in the right lower lung zone and small right pleural effusion. Findings are better seen on recent CT scan dated 03/13/2018. No discernible pneumothorax. Left lung is clear. Normal cardiac silhouette. Head CT 03/14/18 23:28 IMPRESSION: No acute intracranial abnormality. Assessment & Plan - Diagnosis (1) Alcohol withdrawal Qualifiers: Complication of substance-induced condition: with unspecified complication Qualified Code(s): F10.239 - Alcohol dependence with withdrawal, unspecified Is this a current diagnosis for this admission?: Yes Plan: I have further decrease the dose of his Valium and I discontinue the Ativan. He says he is going to [facility] whenever he leaves the hospital. I have declined to give him any more narcotics because his complaints seem to be incongruent with his presentation. - Time Time Spent with patient: 25-34 minutes
[2018-03-21] MEDS: ACETAMINOPHEN 325 MG TABLET PO PRN (20:30)
[2018-03-21] MEDS: DIVALPROEX SODIUM 250 MG TAB.SR.24H PO SCH (22:00)
[2018-03-21] MEDS: PHARMACY COMMUNICATION ORDER MC SCH (22:07)
[2018-03-22] MEDS: OXYCODONE HCL IR 5 MG TABLET PO PRN ×3 (02:33→21:15)
[2018-03-22] MEDS: DIAZEPAM 5 MG TABLET PO SCH (06:22)
[2018-03-22] MEDS: FOLIC ACID 1 MG TABLET PO SCH (10:38)
[2018-03-22] MEDS: AMITRIPTYLINE HCL 50 MG TABLET PO SCH (10:38)
[2018-03-22] MEDS: HYDROCODONE/ACETAMINOPHEN 10-325 MG TABLET PO SCH ×2 (10:38→21:14)
[2018-03-22] MEDS: ENOXAPARIN SODIUM INJ 40 MG/0.4 ML DISP.SYRIN SUBCUT SCH (10:39)
[2018-03-22] MEDS: PREGABALIN 50 MG CAPSULE PO SCH ×3 (10:39→18:13)
[2018-03-22] MEDS: MULTIVITAMIN TABLET PO SCH (10:39)
[2018-03-22] MEDS: THIAMINE HCL 100 MG TABLET PO SCH (10:39)
[2018-03-22] MEDS: HUM INSULIN NPH/REG INSULIN HM 100 UNIT/1 ML 3 ML SUBCUT SCH ×2 (10:40→17:55)
[2018-03-22] MEDS: LIDOCAINE 5% (700 MG) TRANSDERMAL ADH..PATCH TP SCH (10:40)
--- NOTE | 2018-03-22 18:10 | PDOC PROGRESS REPORT ---
Subjective Progress Note for:: 03/22/18 Subjective:: No adverse events overnight. No new complaints. He was standing up in the room at the sink washing his face when I came in. He ambulates without difficulty. He again expresses desire to go to rehab when he leaves the hospital. Reason For Visit: ALCOHOL WITHDRAWAL Physical Exam Vital Signs: Temp Pulse Resp BP Pulse Ox 98.0 F 81 20 120/81 95 03/22/18 00:06 03/22/18 00:06 03/22/18 00:06 03/22/18 00:06 03/22/18 00:06 Intake & Output 03/21/18 03/22/18 03/23/18 06:59 06:59 06:59 Intake Total 1166 1853 960 Balance 1166 1853 960 Weight 112.8 kg 114.5 kg General appearance: PRESENT: no acute distress, cooperative, obese Head exam: PRESENT: atraumatic, normocephalic Eye exam: ABSENT: conjunctival injection, scleral icterus Mouth exam: PRESENT: moist Respiratory exam: PRESENT: clear to auscultation amarilis, unlabored. ABSENT: rales , rhonchi, wheezes Cardiovascular exam: PRESENT: RRR. ABSENT: systolic murmur Pulses: PRESENT: normal radial pulses GI/Abdominal exam: PRESENT: normal bowel sounds, soft. ABSENT: distended, firm , tenderness Rectal exam: PRESENT: deferred Gentrourinary exam: ABSENT: indwelling catheter Extremities exam: ABSENT: pedal edema Musculoskeletal exam: PRESENT: normal inspection Neurological exam: PRESENT: alert, awake, oriented to person, oriented to place , oriented to situation, CN II-XII grossly intact Psychiatric exam: PRESENT: anxious Skin exam: PRESENT: dry, intact, warm Results Laboratory Results: 03/21/18 04:38 03/21/18 04:38 Impressions: Chest X-Ray 03/14/18 22:47 FINDINGS/IMPRESSION: Multiple right-sided rib fractures are present, with atelectasis/contusion in the right lower lung zone and small right pleural effusion. Findings are better seen on recent CT scan dated 03/13/2018. No discernible pneumothorax. Left lung is clear. Normal cardiac silhouette. Head CT 03/14/18 23:28 IMPRESSION: No acute intracranial abnormality. Assessment & Plan - Diagnosis (1) Alcohol withdrawal Qualifiers: Complication of substance-induced condition: with unspecified complication Qualified Code(s): F10.239 - Alcohol dependence with withdrawal, unspecified Is this a current diagnosis for this admission?: Yes Plan: Resolved. I have stopped his benzodiazepine. Case management is trying to see if we can get him into [facility] locally, or if not, and to the [place] facility for this region. - Time Time Spent with patient: 25-34 minutes
[2018-03-22] MEDS: DIVALPROEX SODIUM 250 MG TAB.SR.24H PO SCH (21:15)
[2018-03-22] MEDS: PHARMACY COMMUNICATION ORDER MC SCH (21:17)
[2018-03-23] MEDS: OXYCODONE HCL IR 5 MG TABLET PO PRN (04:22)
[2018-03-23] MEDS: HUM INSULIN NPH/REG INSULIN HM 100 UNIT/1 ML 3 ML SUBCUT SCH (08:55)
[2018-03-23] MEDS: AMITRIPTYLINE HCL 50 MG TABLET PO SCH (08:58)
[2018-03-23] MEDS: ENOXAPARIN SODIUM INJ 40 MG/0.4 ML DISP.SYRIN SUBCUT SCH (09:10)
[2018-03-23] MEDS: PREGABALIN 50 MG CAPSULE PO SCH (09:11)
[2018-03-23] MEDS: THIAMINE HCL 100 MG TABLET PO SCH (09:11)
[2018-03-23] MEDS: FOLIC ACID 1 MG TABLET PO SCH (09:11)
[2018-03-23] MEDS: HYDROCODONE/ACETAMINOPHEN 10-325 MG TABLET PO SCH (09:11)
[2018-03-23] MEDS: MULTIVITAMIN TABLET PO SCH (09:11)
[2018-03-23 09:37] VITALS: BP 113/73
[2018-03-23] MEDS: LIDOCAINE 5% (700 MG) TRANSDERMAL ADH..PATCH TP SCH (10:28)
--- NOTE | 2018-03-23 16:56 | PDOC DISCHARGE SUMMARY ---
General - Admit/Disc Date/PCP Admission Date/Primary Care Provider: 03/15/18 00:53 MARION SANZ MD Discharge Date: 03/23/18 - Discharge Diagnosis (1) Alcohol withdrawal Is this a current diagnosis for this admission?: Yes Summary: There is a possibility that there was some polypharmacy involved as well and that perhaps he was not actually withdrawing. What ever the case, we had him on a benzodiazepine taper regimen and we got him off of it completely. He did continue to ask for more pain medication the whole time he was here despite looking very comfortable. He said that he wanted to go to a rehab center for alcohol, but he has [place] and therefore he has to go to the [place] clinic here and do some sort of ihxa-fo-hcre evaluation so they can get him into 1 of their centers. He was instructed on this and encouraged to go once he left the hospital. His labs and examination were reassuring and he was discharged today in good condition. - Additional Information Resuscitation Status: Full Code Discharge Diet: Diabetic Discharge Activity: Activity As Tolerated Home Medications: Amitriptyline HCl 50 mg PO QAM 03/15/18 Chlorthalidone [Chlorthalidone 25 mg Tablet] 25 mg PO DAILY 03/15/18 Hydrocodone/Acetaminophen [Hydrocodone-Acetamin 10-325 mg] 2 each PO Q12A MDD 4 tabs 03/15/18 Hydroxyzine HCl 25 mg PO QHS PRN MDD 2 tabs 03/15/18 Insulin NPH Hum/Reg Insulin Hm [Novolin 70-30 100 Unit/ml Vial] 30 unit SQ BIDBS 03/15/18 History of Present Illness History of Present Illness: LOIS MUNOZ is a 42 year old male with a long history of alcohol dependence who was brought by EMS with altered mental status. Patient is very confused and cannot provide minimal information. Tells me that he is here because he drinks a lot, says that his last drink was 8 hours ago but he told to the ED attending that was 2 days ago. Apparently his brother call at his house and noticed something different and decided to call EMS, patient was found tremulous and acting confused. In the ED initially very delirious, fidgeting, tremulous and oriented only to self, unable to provide any meaningful history. [place] that the patient was actively withdrawing from alcohol and a total of 20 mg of IV diazepam was given. By the time he went to assess him his mental status minimally improved and was able to answer some of my questions in a reliable way, tells me that he feels his upper and lower extremities very stiff , also tells me that he is not proud of what is going on, tells me he had an episode of alcohol withdrawal in the past but he does not remember when. Drinks more than 12 beers a day. Patient was in our facility on March 11 status post fall down the stairs with loss of consciousness, patient was discharged home and came back March 13 as he has severe right sided chest pain, CT of the chest shows fracture in the right fifth, sixth, seventh ribs with right middle lobe and lower lobe infiltrates versus atelectasis, he was discharged with p.o. doxycycline. Today CT head was negative and the chest x-ray still shows the multiple fractures. Hospital Course Hospital Course: There is a possibility that there was some polypharmacy involved as well and that perhaps he was not actually withdrawing. What ever the case, we had him on a benzodiazepine taper regimen and we got him off of it completely. He did continue to ask for more pain medication the whole time he was here despite looking very comfortable. He said that he wanted to go to a rehab center for alcohol, but he has [facility] and therefore he has [facility] and do some sort of dksr-wi-deom evaluation so they can get him into 1 of their centers. He was instructed on this and encouraged to go once he left the hospital. His labs and examination were reassuring and he was discharged today in good condition Physical Exam Vital Signs: Temp Pulse Resp BP Pulse Ox 98.6 F 85 17 113/73 98 03/23/18 11:47 03/23/18 11:47 03/23/18 11:47 03/23/18 11:47 03/23/18 11:47 Intake & Output 03/22/18 03/23/18 03/24/18 06:59 06:59 06:59 Intake Total 1852 1859 Balance 1852 1859 Weight 114.5 kg 117.3 kg General appearance: PRESENT: no acute distress, cooperative, obese Head exam: PRESENT: atraumatic, normocephalic Eye exam: ABSENT: conjunctival injection, scleral icterus Mouth exam: PRESENT: moist Respiratory exam: PRESENT: clear to auscultation amarilis, unlabored. ABSENT: rales , rhonchi, wheezes Cardiovascular exam: PRESENT: RRR. ABSENT: systolic murmur Pulses: PRESENT: normal radial pulses GI/Abdominal exam: PRESENT: normal bowel sounds, soft. ABSENT: distended, firm , tenderness Rectal exam: PRESENT: deferred Gentrourinary exam: ABSENT: indwelling catheter Extremities exam: ABSENT: pedal edema Musculoskeletal exam: PRESENT: normal inspection Neurological exam: PRESENT: alert, awake, oriented to person, oriented to place , oriented to situation, CN II-XII grossly intact Psychiatric exam: PRESENT: anxious Skin exam: PRESENT: dry, intact, warm Results Laboratory Results: 03/21/18 04:38 03/21/18 04:38 Impressions: Chest X-Ray 03/14/18 22:47 FINDINGS/IMPRESSION: Multiple right-sided rib fractures are present, with atelectasis/contusion in the right lower lung zone and small right pleural effusion. Findings are better seen on recent CT scan dated 03/13/2018. No discernible pneumothorax. Left lung is clear. Normal cardiac silhouette. Head CT 03/14/18 23:28 IMPRESSION: No acute intracranial abnormality. Qualifiers - * PATIENT BEING DISCHARGED WITH ANY OF THE FOLLOWING DIAGNOSIS: No
== END 2018-03-23 12:40 | disposition home or self-care (01) | DRG 897 ==
LOC: ER 22:31 → EH 03-15 00:53 → ICU 03-15 03:09 → 5 03-17 14:35 → UNDODISIN 03-23 11:45
PROVIDERS: ADMIT Internal Medicine; ATTEND Internal Medicine
DX: F10.239 Alcohol dependence with withdrawal, unspecified (principal); S22.41XA Multiple fractures of ribs, right side, initial encounter for closed fracture; E78.5 Hyperlipidemia, unspecified; I10 Essential (primary) hypertension; E11.9 Type 2 diabetes mellitus without complications; M54.9 Dorsalgia, unspecified; G89.29 Other chronic pain; F19.90 Other psychoactive substance use, unspecified, uncomplicated; F43.10 Post-traumatic stress disorder, unspecified; F41.9 Anxiety disorder, unspecified; W10.9XXA Fall (on) (from) unspecified stairs and steps, initial encounter; Z79.4 Long term (current) use of insulin; S20.211A Contusion of right front wall of thorax, initial encounter; Z79.891 Long term (current) use of opiate analgesic; Z88.8 Allergy status to other drugs, medicaments and biological substances; Z23 Encounter for immunization
CPT/HCPCS: 36415; 70450; 71045; 80048; 80053; 80307; 82550; 82962; 83036; 83605; 83690; 83735; 84100; 85025; 85027; 85610; 85730; 90471; 90686; 93005; 93010; 96361; 96374; 99291; G0008; J1170; J1650; J1815; J1885; J2060; J3360; J3411; J3475; J3480; J3490; J7030; J7050; J7120

== ENCOUNTER 2018-03-26 19:32 | Emergency (ER) | payer OTHER ==
[2018-03-26 20:14] LABS: ABSOLUTE BASOPHILS # (AUTO) 0.1 10^3/uL (0.0-0.2); ABSOLUTE EOSINOPHILS # (AUTO) 0.3 10^3/uL (0.0-0.6); ABSOLUTE LYMPHOCYTES (AUTO) 3.9 10^3/uL (0.5-4.7); ABSOLUTE MONOCYTES (AUTO) 0.5 10^3/uL (0.1-1.4); ABSOLUTE NEUT (AUTO) 3.7 10^3/uL (1.7-8.2); BASOPHILS % (AUTO) 0.9 % (0-2); EOSINOPHILS % (AUTO) 3.2 % (0-6); HEMATOCRIT 42.2 % (37.9-51.0); HEMOGLOBIN 14.4 g/dL (13.5-17.0); LYMPHOCYTES % (AUTO) 46.3 % (13-45); MEAN CORPUSCULAR HEMOGLOBIN 29.4 pg (27.0-33.4); MEAN CORPUSCULAR HGB CONC 34.2 g/dL (32.0-36.0); MEAN CORPUSCULAR VOLUME 86 fl (80-97); MONOCYTES % (AUTO) 5.6 % (3-13); PLATELET COUNT 350 10^3/uL (150-450); RED BLOOD COUNT 4.91 10^6/uL (4.35-5.55); RED CELL DISTRIBUTION WIDTH 12.6 % (11.5-14.0); TOTAL CELLS COUNTED % (AUTO) 100 %; WHITE BLOOD COUNT 8.5 10^3/uL (4.0-10.5)
[2018-03-26 20:35] LABS: ALANINE AMINOTRANSFERASE 31 U/L (21-72); ALBUMIN 4.7 g/dL (3.5-5.0); ALCOHOL 153 mg/dL (NONE DETECTED); ALKALINE PHOSPHATASE 162 U/L (38-126); ANION GAP 16 (5-19); ASPARTATE AMINO TRANSFERASE 23 U/L (17-59); BILIRUBIN,DIRECT 0.3 mg/dL (0.0-0.4); BILIRUBIN,TOTAL 0.4 mg/dL (0.2-1.3); BLOOD UREA NITROGEN 7 mg/dL (7-20); CALCIUM 9.6 mg/dL (8.4-10.2); CARBON DIOXIDE 22 mmol/L (22-30); CHLORIDE 107 mmol/L (98-107); GLUCOSE 232 mg/dL (75-110); POTASSIUM 4.1 mmol/L (3.6-5.0); SODIUM 144.9 mmol/L (137-145); TOTAL PROTEIN 8.1 g/dL (6.3-8.2)
[2018-03-26] MEDS ORDERED: NORMAL SALINE 1000 ML 1,000 ML IV ONE (20:39)
--- NOTE | 2018-03-26 20:55 | ER Document Report ---
ED General - General TRAVEL OUTSIDE OF THE U.S. IN LAST 30 DAYS: No <SRUTHI HUNTER - Last Filed: 03/27/18 06:54> <KIRA ALCALA - Last Filed: 03/27/18 11:06> <JOSE DICKENS E - Last Filed: 03/27/18 11:30> - General Chief Complaint: Altered Mental Status Stated Complaint: PSYCH Time Seen by Provider: 03/26/18 19:51 Notes: According to RN who received report from EMS patient was found in his boxers at a [employer] restaurant "not making any sense". Initially patient was conscious alert and oriented x4 and refused transport. Per EMS Pts brother then called 911 again to have the Pt. transported to the ED. Pt eventually agreed to transport. Pt presents to the ED only complaining of pain in his right lower ribs, stated he fell a few weeks ago and has broken ribs there. Stated that he usually drink everyday stated that he has had ten beers today. pt. is CAOx4 and denying HI, SI, and auditory or visual hallucination. Pt. denies CP, SOB, NVD, fever, abd pain. Pts brother and mother have called the ED multiple times asking for the pt. to be admitted because he "needs help with alcohol." Pt. initially stated that he wished to be d/enrique and then agreed to stay for a Psych consult in the morning. Pt. continues to deny SI and HI stating, "I just need to get my drinking under control." PMH: PTSD, HTN, DM, chronic back pain, hyperlipidemia Meds: Losartan, novolog, soma, atorvastatin Allergies: gabapentin (SRUTHI HUNTER) - Related Data Allergies/Adverse Reactions: gabapentin [From Neurontin] Allergy (Verified 03/11/18 11:41) pecan nut Allergy (Verified 03/15/18 07:28) walnut Allergy (Verified 03/15/18 07:28) Past Medical History - General Information source: Patient, Relative - Social History Smoking Status: Unknown if Ever Smoked Chew tobacco use (# tins/day): No Frequency of alcohol use: Heavy Drug Abuse: None Lives with: Alone Family History: Reviewed & Not Pertinent Patient has suicidal ideation: No Patient has homicidal ideation: No - Past Medical History Cardiac Medical History: Reports: Hx Hypercholesterolemia, Hx Hypertension Denies: Hx Coronary Artery Disease Endocrine Medical History: Reports: Hx Diabetes Mellitus Type 2 - Patient has been diabetic since late 2014. Renal/ Medical History: Denies: Hx Peritoneal Dialysis Traumatic Medical History: Reports: Hx Spine Fracture - Midthoracic compression fractures Past Surgical History: Reports: Hx Herniorrhaphy, Hx Orthopedic Surgery - Right knee ACL repair, Hx Umbilical Hernia - Immunizations Hx Pneumococcal Vaccination: 06/07/11 <SRUTHI HUNTER - Last Filed: 03/27/18 06:54> Review of Systems - Review of Systems Constitutional: See HPI EENT: See HPI Cardiovascular: See HPI Respiratory: See HPI Gastrointestinal: See HPI Genitourinary: See HPI Male Genitourinary: No symptoms reported Musculoskeletal: See HPI Skin: No symptoms reported Hematologic/Lymphatic: No symptoms reported Neurological/Psychological: See HPI <SRUTHI HUNTER - Last Filed: 03/27/18 06:54> Physical Exam <SRUTHI HUNTER - Last Filed: 03/27/18 06:54> <KIRA ALCALA - Last Filed: 03/27/18 11:06> <JOSE DICKENS - Last Filed: 03/27/18 11:30> - Vital signs Vitals: Temp Pulse Resp BP Pulse Ox 99.4 F 99 17 122/75 97 03/26/18 19:38 03/26/18 19:38 03/26/18 19:38 03/26/18 19:38 03/26/18 19:38 - Notes Notes: GENERAL: Alert, interacts well. No acute distress. HEAD: Normocephalic, atraumatic. EYES: Pupils equal, round, and reactive to light. Extraocular movements intact. ENT: Oral mucosa moist, tongue midline. NECK: Full range of motion. Supple. Trachea midline. LUNGS: Clear to auscultation bilaterally, no wheezes, rales, or rhonchi. No respiratory distress. HEART: Regular rate and rhythm. No murmur ABDOMEN: Soft, non-tender. Non-distended. Bowel sounds present in all 4 quadrants. EXTREMITIES: Moves all 4 extremities spontaneously. No edema, normal radial and dorsalis pedis pulses bilaterally. No cyanosis. BACK: no cervical, thoracic, lumbar midline tenderness. No saddle anesthesia, normal distal neurovascular exam. NEUROLOGICAL: Alert and oriented x3. Normal speech. cranial nerves II through XII grossly intact. PSYCH: Normal affect, normal mood. SKIN: Warm, dry, normal turgor. No rashes or lesions noted. (SRUTHI HUNTER) Course - Laboratory Result Diagrams: 03/26/18 20:04 03/26/18 20:04 <SRUTHI HUNTER - Last Filed: 03/27/18 06:54> - Laboratory Result Diagrams: 03/26/18 20:04 03/26/18 20:04 <KIRA ALCALA - Last Filed: 03/27/18 11:06> - Laboratory Result Diagrams: 03/26/18 20:04 03/26/18 20:04 <JOSE DICKENS - Last Filed: 03/27/18 11:30> - Re-evaluation Re-evalutation: 03/26/18 22:10 Pt. states he would like to stay in the hospital to talk to our psych facility about alcohol abuse. Patient continues to deny SI HI auditory or visual hallucinations. Patient states the pain in his right lower ribs has increased and he is wondering if he can get pain management. Pain management will be provided and patient will also be given a sandwich. Patient understands that he must be here overnight in order to talk to psych facilities in the morning. Patient continues to be conscious alert and oriented x4 with his only complaint of right anterior lower rib pain. RN brings to my attention multiple times patient as agitated. Upon multiple evaluations patient does not appear tachycardic nor is he hypertensive or jittery in the room. Patient is always just lying supine looking at the ceiling. Patient states last time he was in the emergency room and then in the hospital they gave him Ativan to help his nerves. Patient states he is very anxious at this point and would like some Ativan. Patient then states he always has trouble sleeping and would like some medication to help him sleep. Discussed with Dr. Donaldson administration of Trazodone. Pt. very thankful for Trazodone administration. Pt. then resting comfortably, not tachycardic and also not hypertensive. 03/27/18 07:00 Pt. care turned over to Benjamin Fairbanks PA-C (SRUTHI HUNTER) - Vital Signs Vital signs: Temp Pulse Resp BP Pulse Ox 99.4 F 99 23 H 134/97 H 95 03/26/18 19:38 03/26/18 19:38 03/27/18 10:01 03/27/18 10:00 03/27/18 10:00 - Laboratory Laboratory results interpreted by me: 03/26/18 03/26/18 03/27/18 20:04 20:04 00:49 Lymphocytes % 46.3 H Glucose 232 H POC Glucose 321 H Alkaline Phosphatase 162 H 03/27/18 02:26 Lymphocytes % Glucose POC Glucose 233 H Alkaline Phosphatase Discharge <SRUTHI HUNTER - Last Filed: 03/27/18 06:54> <KIRA ALCALA - Last Filed: 03/27/18 11:06> <JOSE DICKENS - Last Filed: 03/27/18 11:30> - Discharge Clinical Impression: Hyperglycemia, Alcohol use disorder Altered mental status Qualifiers: Altered mental status type: unspecified Qualified Code(s): R41.82 - Altered mental status, unspecified Alcohol intoxication Qualifiers: Complication of substance-induced condition: uncomplicated Qualified Code(s): F10.920 - Alcohol use, unspecified with intoxication, uncomplicated Condition: Stable Disposition: HOME, SELF-CARE Instructions: Acute Alcohol Intoxication ([facility]), Hyperglycemia ([facility]) Additional Instructions: You were seen in the ED and evaluated by the Medical and Behavioral Health Teams for altered mental status and determined to be appropriate for discharge at this time. You were provided with a resource list to include outpatient providers/substance abuse treatment to assist you upon discharge. Altered Mental Status An altered mental status is a change in the normal functioning of the brain. This alteration of function can range from minor decreased brain function with some forgetfulness and confusion to complete loss of consciousness and coma. There are many possible causes of an altered mental status and include brain injuries such as trauma or strokes, problems with oxygen supply to the brain, fever and infections of the brain and/or elsewhere in the body, metabolic abnormalities such as low or high blood sugar, overdoses or excessive medication ingestion, and mental and psychiatric illnesses. Sometimes the altered mental status resolves and a definite cause is not determined. If a cause for your altered mental status was found, it has likely been corrected. Your evaluation has not shown any condition that requires that you be admitted to the hospital. It is believed that you are safe to leave and return to your home. If you have a return of your symptoms, you should return for re-evaluation. Forms: Elevated Blood Pressure
--- NOTE | 2018-03-26 21:10 | RADIOLOGY REPORT (SQ) ---
EXAM DESCRIPTION: XR CHEST 2 VIEWS COMPLETED DATE/TME: 03/26/2018 19:56 CLINICAL HISTORY: 42 years Male pain/fall COMPARISON: 03/26/2018. FINDINGS: Cardiac size appears stable. Areas of atelectasis in the lung bases right greater than left. Blunting the right costophrenic angle and elevation of the right hemidiaphragm. This is unchanged the previous study and is consistent with small amount of pleural fluid. Multiple right rib fractures again noted. IMPRESSION: Right basilar atelectasis and small pleural effusion with multiple right rib fractures. Minimal left basilar atelectasis
[2018-03-26 21:22] LABS: URINE AMPHETAMINES SCREEN NEGATIVE; URINE BARBITURATES SCREEN NEGATIVE; URINE BENZODIAZEPINES SCREEN UNCONFIRMED POSITIVE; URINE COCAINE SCREEN NEGATIVE; URINE MARIJUANA (THC) SCREEN NEGATIVE; URINE METHADONE SCREEN NEGATIVE; URINE PHENCYCLIDINE SCREEN NEGATIVE
--- NOTE | 2018-03-26 21:47 | EKG REPORT ---
SEVERITY:- BORDERLINE ECG - SINUS RHYTHM BORDERLINE LEFT AXIS DEVIATION BORDERLINE PROLONGED QT INTERVAL : Confirmed by: Chay Fabian MD 26-Mar-2018 21:46:36
[2018-03-26] MEDS ORDERED: HYDROCODONE/ACETAMINOPHEN 7.5-325 MG TABLET PO ONE (22:10)
[2018-03-26] MEDS ORDERED: LORAZEPAM INJ 2 MG/1 ML VIAL IV ONE (23:28)
[2018-03-27] MEDS ORDERED: PROMETHAZINE HCL INJ 50 MG/1 ML VIAL IM PRN (00:39)
[2018-03-27] MEDS ORDERED: HUM INSULIN NPH/REG INSULIN HM 100 UNIT/1 ML 3 ML SUBCUT ONE (00:52)
[2018-03-27] MEDS ORDERED: PROMETHAZINE HCL INJ 50 MG/1 ML VIAL ONE (01:08)
[2018-03-27] MEDS ORDERED: PROMETHAZINE HCL INJ 25 MG/1 ML VIAL IM ONE (01:23)
[2018-03-27] MEDS ORDERED: LORAZEPAM INJ 2 MG/1 ML VIAL IV ONE ×2 (02:23→08:13)
[2018-03-27] MEDS ORDERED: TRAZODONE HCL 50 MG TABLET PO ONE (04:01)
--- NOTE | 2018-03-27 09:27 | ER Document Report ---
Doctor's Note Notes: 03/27/18 09:27 As the rounding physician for our psychiatric patients, I have reviewed the chart, vitals, lab work. Patient has been examined and noted to be. I am awaiting mental health in put. Mental health has evaluated the patient and deems him safe for discharge. He was provided resources for detox. 03/27/18 11:28
[2018-03-27 11:51] VITALS: BP 132/90
== END 2018-03-27 11:51 | disposition home or self-care (01) ==
LOC: ER 19:32
DX: R41.82 Altered mental status, unspecified (principal); F10.920 Alcohol use, unspecified with intoxication, uncomplicated; F43.10 Post-traumatic stress disorder, unspecified; I10 Essential (primary) hypertension; E11.65 Type 2 diabetes mellitus with hyperglycemia; Z79.4 Long term (current) use of insulin; E78.00 Pure hypercholesterolemia, unspecified
CPT/HCPCS: 93005; 96376; 99285; 96374; 96375; 36415; 82962; 80307 ×2; 85025; 80053; 71046; 93010; J2060 ×2; J2550; J1815

== ENCOUNTER 2019-07-04 14:56 | Emergency (ER) | payer OTHER ==
--- NOTE | 2019-07-04 15:30 | ER Document Report ---
ED Medical Screen (RME) - General Chief Complaint: Fall Injury Stated Complaint: FALL - HEAD/RIGHT LEG INJURY Time Seen by Provider: 07/04/19 15:27 TRAVEL OUTSIDE OF THE [place].S. IN LAST 30 DAYS: No - HPI Notes: 07/04/19 15:28 43-year-old male presents the ED for evaluation after he fell down 6 stairs backwards, with positive change in LOC, headache, lower back pain, right knee pain right forearm pain. Event happened 6 days ago, he did not get checked out because he was "too stubborn". Since that time patient has had problems with stuttering, finding his thoughts. Is not on any blood thinners. Has not tried any cwyx-ljf-neqonct pain medications for the symptoms. Has not been evaluated by medical provider. Denies any chest pain or shortness of breath. Denies any open wounds I have greeted and performed a rapid initial assessment of this patient. A comprehensive ED assessment and evaluation of the patient, analysis of test results and completion of the medical decision making process will be conducted by additional ED providers. PHYSICAL EXAMINATION: GENERAL: Well-appearing, well-nourished and in no acute distress. HEAD: Atraumatic, normocephalic. EYES: Pupils equal round extraocular movements intact, conjunctiva are normal. NECK: Cervical spine tenderness on palpation CV: s1, s2 regular LUNGS: No respiratory distress Musculoskeletal: Normal range of motion. noted bruising of right knee and right forearm NEUROLOGICAL: Stuttering with speech intermittently, in wheelchair. SKIN: Warm, Dry, normal turgor, no rashes or lesions noted. - Related Data Allergies/Adverse Reactions: gabapentin [From Neurontin] Allergy (Verified 04/04/18 12:21) pecan nut Allergy (Verified 04/04/18 12:21) walnut Allergy (Verified 04/04/18 12:21) Past Medical History - Past Medical History Cardiac Medical History: Reports: Hx Hypercholesterolemia, Hx Hypertension Denies: Hx Coronary Artery Disease Endocrine Medical History: Reports: Hx Diabetes Mellitus Type 2 - Patient has been diabetic since late 2014. A1C of 9.9 on Mar 29 2018 Renal/ Medical History: Reports: Hx Kidney Stones. Denies: Hx Peritoneal Dialysis Psychiatric Medical History: Reports: Hx Depression Traumatic Medical History: Reports: Hx Spine Fracture - Midthoracic compression fractures Past Surgical History: Reports: Hx Abdominal Surgery - umbicial hernia repair, Hx Herniorrhaphy, Hx Orthopedic Surgery - Right knee ACL repair, Hx Umbilical Hernia Physical Exam - Vital signs Vitals: Temp Pulse Resp BP Pulse Ox 98.8 F 103 H 16 151/104 H 97 07/04/19 15:21 07/04/19 15:21 07/04/19 15:21 07/04/19 15:21 07/04/19 15:21 Course - Vital Signs Vital signs: Temp Pulse Resp BP Pulse Ox 98.8 F 103 H 16 151/104 H 97 07/04/19 15:21 07/04/19 15:21 07/04/19 15:21 07/04/19 15:21 07/04/19 15:21
--- NOTE | 2019-07-04 16:37 | RADIOLOGY REPORT (SQ) ---
EXAM DESCRIPTION: L SPINE WHOLE COMPLETED DATE/TIME: 07/04/2019 4:30 pm REASON FOR STUDY: fall x 6days ago, +loc, WALKER, LBP, knee/arm pain COMPARISON: None. NUMBER OF VIEWS: Five views including obliques. TECHNIQUE: AP, lateral, oblique, and sacral radiographic images acquired of the lumbar spine. LIMITATIONS: None. FINDINGS: MINERALIZATION: Normal. SEGMENTATION: Normal. No transitional anatomy. ALIGNMENT: Normal. VERTEBRAE: Maintained height. No fracture or worrisome bone lesion. DISCS: Preserved height. No significant osteophytes or end plate irregularity. POSTERIOR ELEMENTS: Pedicles and facets are intact. No pars defect or posterior arch defects. HARDWARE: None in the spine. PARASPINAL SOFT TISSUES: Normal. PELVIS: Intact as visualized. No fractures or worrisome bone lesions. SI joints intact. OTHER: No other significant finding. IMPRESSION: NORMAL 5 VIEW LUMBAR SPINE. TECHNICAL DOCUMENTATION: JOB ID: [id number] [employer]- All Rights Reserved Reading location - IP/workstation name: [email or web address]
--- NOTE | 2019-07-04 16:38 | RADIOLOGY REPORT (SQ) ---
EXAM DESCRIPTION: FOREARM RIGHT COMPLETED DATE/TIME: 07/04/2019 4:30 pm REASON FOR STUDY: fall x 6days ago, +loc, WALKER, LBP, knee/arm pain COMPARISON: None. NUMBER OF VIEWS: Two views. TECHNIQUE: Two radiographic images acquired of the right forearm, including elbow and wrist in at le ast one projection. LIMITATIONS: None. FINDINGS: MINERALIZATION: Normal. BONES: No acute fracture. No worrisome bone lesions. SOFT TISSUES: No obvious swelling or foreign body. OTHER: No other significant finding. IMPRESSION: NEGATIVE STUDY OF THE RIGHT FOREARM. NO RADIOGRAPHIC EVIDENCE OF ACUTE INJURY. TECHNICAL DOCUMENTATION: JOB ID: [id number] [employer]- All Rights Reserved Reading location - IP/workstation name: [email or web address]
--- NOTE | 2019-07-04 16:39 | RADIOLOGY REPORT (SQ) ---
EXAM DESCRIPTION: KNEE RIGHT 4 VIEWS COMPLETED DATE/TIME: 07/04/2019 4:30 pm REASON FOR STUDY: fall x 6days ago, +loc, WALKER, LBP, knee/arm pain COMPARISON: None. NUMBER OF VIEWS: Four views. TECHNIQUE: AP, lateral, and both oblique radiographic images acquired of the right knee. LIMITATIONS: None. FINDINGS: MINERALIZATION: Normal. BONES: No acute fracture or dislocation. No worrisome bone lesions. JOINT: No effusion. SOFT TISSUES: No soft tissue swelling. No radio-opaque foreign body. OTHER: No other significant finding. IMPRESSION: NEGATIVE STUDY OF THE RIGHT KNEE. NO RADIOGRAPHIC EVIDENCE OF ACUTE INJURY. TECHNICAL DOCUMENTATION: JOB ID: [id number] [employer]- All Rights Reserved Reading location - IP/workstation name: [email or web address]
--- NOTE | 2019-07-04 16:40 | RADIOLOGY REPORT (SQ) ---
EXAM DESCRIPTION: FOOT RIGHT COMPLETE COMPLETED DATE/TIME: 07/04/2019 4:30 pm REASON FOR STUDY: FALL/PAIN COMPARISON: None. NUMBER OF VIEWS: Three views. TECHNIQUE: AP, lateral and oblique radiographic images acquired of the right foot. LIMITATIONS: None. FINDINGS: MINERALIZATION: Normal. BONES: No acute fracture or dislocation. No worrisome bone lesions. JOINTS: No effusions. SOFT TISSUES: No soft tissue swelling. No foreign body. OTHER: No other significant finding. IMPRESSION: NEGATIVE STUDY OF THE RIGHT FOOT. NO RADIOGRAPHIC EVIDENCE OF ACUTE INJURY. TECHNICAL DOCUMENTATION: JOB ID: [id number] [employer]- All Rights Reserved Reading location - IP/workstation name: [email or web address]
--- NOTE | 2019-07-04 17:22 | RADIOLOGY REPORT (SQ) ---
EXAM DESCRIPTION: CT HEAD WITHOUT COMPLETED DATE/TIME: 07/04/2019 4:50 pm REASON FOR STUDY: fall x 6days ago, +loc, WALKER, LBP, knee/arm pain COMPARISON: CT brain 03/14/2018 TECHNIQUE: Axial images acquired through the brain without intravenous contrast. Images reviewed wi th bone, brain and subdural windows. Additional sagittal and coronal reconstructions were generated. Images stored on PACS. All CT scanners at this facility use dose modulation, iterative reconstruction, and/or weight based d osing when appropriate to reduce radiation dose to as low as reasonably achievable (ALARA). [facility]: Dose Right [facility]: CareDose [facility]: Dose Right [facility]: Teradose 4D [facility]: [facility] [address] RADIATION DOSE: 53 mGy. LIMITATIONS: None. FINDINGS: VENTRICLES: Normal size and contour. CEREBRUM: No masses. No hemorrhage. No midline shift. No evidence for acute infarction. Normal gra y/white matter differentiation. No areas of low density in the white matter. CEREBELLUM: No masses. No hemorrhage. No alteration of density. No evidence for acute infarction. EXTRAAXIAL SPACES: No fluid collections. No masses. ORBITS AND GLOBE: No intra- or extraconal masses. Normal contour of globe without masses. CALVARIUM: No fracture. PARANASAL SINUSES: There is a metallic foreign body in the floor of the right sphenoid sinus unchange d from prior studies. SOFT TISSUES: No mass or hematoma. OTHER: No other significant finding. IMPRESSION: No acute intracranial changes. Metallic foreign body along the floor of the right sphenoid sinus unchanged from prior studies EVIDENCE OF ACUTE STROKE: NO. COMMENT: Quality ID # 436: Final reports with documentation of one or more dose reduction techniques (e.g., Automated exposure control, adjustment of the mA and/or kV according to patient size, use of iterative reconstruction technique) TECHNICAL DOCUMENTATION: JOB ID: [id number] [employer]- All Rights Reserved Reading location - IP/workstation name: [email or web address]
--- NOTE | 2019-07-04 17:25 | RADIOLOGY REPORT (SQ) ---
EXAM DESCRIPTION: CT CERVICAL SPINE WITHOUT COMPLETED DATE/TIME: 07/04/2019 4:50 pm REASON FOR STUDY: fall x 6days ago, +loc, WALKER, LBP, knee/arm pain COMPARISON: CT cervical spine 03/11/2018 TECHNIQUE: Axial images acquired through the cervical spine without intravenous contrast. Images re viewed with lung, soft tissue and bone windows. Reconstructed coronal and sagittal MPR images review ed. Images stored on PACS. All CT scanners at this facility use dose modulation, iterative reconstruction, and/or weight based d osing when appropriate to reduce radiation dose to as low as reasonably achievable (ALARA). [facility]: Dose Right [facility]: CareDose [facility]: Dose Right [facility]: Teradose 4D [facility]: Smart [employer]ART RADIATION DOSE: CT Rad equipment meets quality standard of care and radiation dose reduction techniq ues were employed. CTDIvol: 23.4 - 53.2 mGy. DLP: 1727 mGy-cm. mGy. LIMITATIONS: None. FINDINGS: ALIGNMENT: Anatomic. MINERALIZATION: Normal. VERTEBRAL BODIES: No fractures or dislocation. DISCS: Craniocervical junction, C1-2, C2-3 are unremarkable. Mild bilateral foraminal narrowing at C 3-4 from facet and uncovertebral hypertrophy. At C4-5, moderate right foraminal narrowing from asymmetric disc bulge and bony spurring is present b est shown on axial image 44/81. No significant central stenosis or left foraminal narrowing C5-6, C6-7, C7-T1 are unremarkable FACETS, LATERAL MASSES, POSTERIOR ELEMENTS: No fractures. No dislocation. No acute findings. HARDWARE: None in the spine. VISUALIZED RIBS: No fractures. LUNG APICES AND SOFT TISSUES: No significant or acute findings. OTHER: Metallic foreign body in the floor right sphenoid sinus. IMPRESSION: No acute fracture or malalignment. TECHNICAL DOCUMENTATION: JOB ID: [id number] Quality ID # [id number]: Final reports with documentation of one or more dose reduction techniques (e.g., Au tomated exposure control, adjustment of the mA and/or kV according to patient size, use of iterative reconstruction technique) 2010 [employer]- All Rights Reserved Reading location - IP/workstation name: [email or web address]
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
[2019-07-04 18:55] LABS: ABSOLUTE EOSINOPHILS # (AUTO) 0.3 10^3/uL (0.0-0.6); ABSOLUTE LYMPHOCYTES (AUTO) 2.4 10^3/uL (0.5-4.7); ABSOLUTE MONOCYTES (AUTO) 0.7 10^3/uL (0.1-1.4); ABSOLUTE NEUT (AUTO) 5.9 10^3/uL (1.7-8.2); BASOPHILS % (AUTO) 0.5 % (0-2); EOSINOPHILS % (AUTO) 3.4 % (0-6); HEMATOCRIT 45.7 % (37.9-51.0); LYMPHOCYTES % (AUTO) 25.6 % (13-45); MEAN CORPUSCULAR HEMOGLOBIN 30.9 pg (27.0-33.4); MEAN CORPUSCULAR HGB CONC 35.1 g/dL (32.0-36.0); MEAN CORPUSCULAR VOLUME 88 fl (80-97); MONOCYTES % (AUTO) 7.5 % (3-13); PLATELET COUNT 232 10^3/uL (150-450); RED BLOOD COUNT 5.19 10^6/uL (4.35-5.55); RED CELL DISTRIBUTION WIDTH 12.2 % (11.5-14.0); TOTAL CELLS COUNTED % (AUTO) 100 %; WHITE BLOOD COUNT 9.3 10^3/uL (4.0-10.5)
[2019-07-04 19:03] LABS: APPEARANCE,URINE CLEAR; BILIRUBIN,URINE NEGATIVE (NEGATIVE); COLOR,URINE STRAW; GLUCOSE, URINE >=500 mg/dL (NEGATIVE); KETONES,URINE TRACE mg/dL (NEGATIVE); LEUKOCYTE ESTERASE,URINE NEGATIVE (NEGATIVE); NITRITE,URINE NEGATIVE (NEGATIVE); PROTEIN,URINE NEGATIVE (NEGATIVE); URINE SPECIFIC GRAVITY 1.003; UROBILINOGEN,URINE NEGATIVE mg/dL (<2.0)
[2019-07-04] MEDS ORDERED: KETOROLAC TROMETHAMINE INJ/PF 30 MG/1 ML SDV IV ONE (19:07)
[2019-07-04 19:17] LABS: ALKALINE PHOSPHATASE 133 U/L (38-126); ANION GAP 14 (5-19); ASPARTATE AMINO TRANSFERASE 80 U/L (17-59); BILIRUBIN,DIRECT 0.4 mg/dL (0.0-0.4); BILIRUBIN,TOTAL 0.5 mg/dL (0.2-1.3); BLOOD UREA NITROGEN 13 mg/dL (7-20); CALCIUM 11.2 mg/dL (8.4-10.2); CARBON DIOXIDE 27 mmol/L (22-30); CHLORIDE 97 mmol/L (98-107); GLUCOSE 167 mg/dL (75-110); POTASSIUM 4.2 mmol/L (3.6-5.0); TOTAL PROTEIN 8.9 g/dL (6.3-8.2)
[2019-07-04] MEDS ORDERED: LORAZEPAM INJ 2 MG/1 ML VIAL IV ONE (19:49)
[2019-07-04] MEDS ORDERED: ACETAMINOPHEN 325 MG TABLET PO ONE (22:48)
[2019-07-04 22:49] LABS: URINE AMPHETAMINES SCREEN NEGATIVE; URINE BARBITURATES SCREEN NEGATIVE; URINE BENZODIAZEPINES SCREEN NEGATIVE; URINE COCAINE SCREEN NEGATIVE; URINE MARIJUANA (THC) SCREEN NEGATIVE; URINE METHADONE SCREEN NEGATIVE; URINE PHENCYCLIDINE SCREEN NEGATIVE
[2019-07-04 23:52] VITALS: BP 125/85
--- NOTE | 2019-07-04 23:58 | ER Document Report ---
Doctor's Note Notes: 07/04/19 23:57 Care of this patient was turned over to me at the end of Dr. Bryant shift. In short this is a patient with a history of TBI and severe concussion. The patient was seen and evaluated. The patient was still complaining of a headache, but was otherwise stable. He is medically cleared and stable for transport.
== END 2019-07-04 23:58 | disposition short-term general hospital (02) ==
LOC: ER 14:56
DX: F07.81 Postconcussional syndrome (principal); S09.90XA Unspecified injury of head, initial encounter; S90.01XA Contusion of right ankle, initial encounter; M79.601 Pain in right arm; M25.561 Pain in right knee; M25.571 Pain in right ankle and joints of right foot; R51 Headache; F80.81 Childhood onset fluency disorder; R26.9 Unspecified abnormalities of gait and mobility; W10.9XXA Fall (on) (from) unspecified stairs and steps, initial encounter; Z87.820 Personal history of traumatic brain injury; Z79.899 Other long term (current) drug therapy; E11.9 Type 2 diabetes mellitus without complications; I10 Essential (primary) hypertension
CPT/HCPCS: 99285; 96374; 96375; 36415; 85025; 80076; 80048; 81001; 80307; 73090; 73630; 73564; 72110; 70450; 72125; J1885; J2060

== ENCOUNTER 2019-10-24 10:20 | Emergency (ER) | payer OTHER ==
[2019-10-24 10:32] LABS: ABSOLUTE EOSINOPHILS # (AUTO) 0.2 10^3/uL (0.0-0.6); ABSOLUTE LYMPHOCYTES (AUTO) 2.6 10^3/uL (0.5-4.7); ABSOLUTE MONOCYTES (AUTO) 0.6 10^3/uL (0.1-1.4); BASOPHILS % (AUTO) 0.4 % (0-2); EOSINOPHILS % (AUTO) 2.7 % (0-6); HEMATOCRIT 47.1 % (37.9-51.0); HEMOGLOBIN 16.2 g/dL (13.5-17.0); LYMPHOCYTES % (AUTO) 35.1 % (13-45); MEAN CORPUSCULAR HEMOGLOBIN 31.4 pg (27.0-33.4); MEAN CORPUSCULAR HGB CONC 34.3 g/dL (32.0-36.0); MEAN CORPUSCULAR VOLUME 91 fl (80-97); MONOCYTES % (AUTO) 7.9 % (3-13); PLATELET COUNT 212 10^3/uL (150-450); RED BLOOD COUNT 5.16 10^6/uL (4.35-5.55); RED CELL DISTRIBUTION WIDTH 13.9 % (11.5-14.0); SEGMENTED NEUTROPHILS % (AUTO) 53.9 % (42-78); TOTAL CELLS COUNTED % (AUTO) 100 %; WHITE BLOOD COUNT 7.4 10^3/uL (4.0-10.5)
[2019-10-24] MEDS ORDERED: MORPHINE SULFATE 10 MG/ML INJ IV ONE (10:39)
[2019-10-24] MEDS ORDERED: KETOROLAC TROMETHAMINE INJ/PF 30 MG/1 ML SDV IV ONE (10:39)
--- NOTE | 2019-10-24 10:44 | ER Document Report ---
ED GI/ - General Chief Complaint: Abdominal Pain Stated Complaint: EPIGASTRIC PAIN Time Seen by Provider: 10/24/19 10:26 Primary Care Provider: ELA BOTELLO [Primary Care Provider] - Follow up as needed Notes: 43-year-old man presents to the emergency department with a two-week history of epigastric abdominal pain. He describes the pain as a burning sensation involving the outer surface of the epigastrium and right upper quadrant region. He states that the pain has become very severe over the past 2 days and was was so bad this morning that it caused him to have a vomiting episode. He has a history of GERD with esophagitis. He states that this pain is different and feels like it is on the surface. Cannot stand for his shirt to even touch the skin and causing severe pain. TRAVEL OUTSIDE OF THE [place] IN LAST 30 DAYS: No - Related Data Allergies/Adverse Reactions: gabapentin [From Neurontin] Allergy (Verified 04/04/18 12:21) pecan nut Allergy (Verified 04/04/18 12:21) walnut Allergy (Verified 04/04/18 12:21) Past Medical History - General Information source: Patient - Social History Smoking Status: Unknown if Ever Smoked Family History: Reviewed & Not Pertinent Patient has homicidal ideation: No - Past Medical History Cardiac Medical History: Reports: Hx Hypercholesterolemia, Hx Hypertension Denies: Hx Coronary Artery Disease Endocrine Medical History: Reports: Hx Diabetes Mellitus Type 2 - Patient has been diabetic since late 2014. A1C of 9.9 on Mar 29 2018 Renal/ Medical History: Reports: Hx Kidney Stones. Denies: Hx Peritoneal Dialysis Psychiatric Medical History: Reports: Hx Depression Traumatic Medical History: Reports: Hx Spine Fracture - Midthoracic compression fractures Past Surgical History: Reports: Hx Abdominal Surgery - umbicial hernia repair, Hx Herniorrhaphy, Hx Orthopedic Surgery - Right knee ACL repair, Hx Umbilical Hernia - Immunizations Hx Pneumococcal Vaccination: 06/07/11 Review of Systems - Review of Systems Notes: Constitutional: Negative for fever. HENT: Negative for sore throat. Eyes: Negative for visual changes. Cardiovascular: Negative for chest pain. Respiratory: Negative for shortness of breath. Gastrointestinal: + abdominal pain, +vomiting or diarrhea. Genitourinary: Negative for dysuria. Musculoskeletal: Negative for back pain. Skin: + rash. Neurological: Negative for headaches, weakness or numbness. 10 point ROS negative except as marked above and in HPI. Physical Exam - Vital signs Vitals: Resp Pulse Ox 16 97 10/24/19 10:25 10/24/19 10:25 - Notes Notes: PHYSICAL EXAMINATION: Physical Exam: General: Well-nourished well-developed severe pain with diaphoresis HEENT: NC/AT, pupils equal round and reactive to light, MM moist,nares clear, oropharynx clear, airway patent Neck: supple, no adenopathy, no masses. Good range of motion Lungs: clear, no wheezing, no rales no rhonchi CVS: Regular rate and rhythm no murmur gallop or rub Abdomen: Soft, active, tenderness to palpation, no masses, no hepatosplenomegaly Ext: No edema, clubbing or cyanosis. Back: + CVA tenderness bilaterally Neuro: Alert and responsive, moving all 4 extremities on command, cranial nerves intact, no focal findings Skin: I erythema with tenderness to light touch and hyperesthesia involving the epigastric and upper abdominal area extending above the umbilicus and below the xiphoid region across to the right upper quadrant, he also has tenderness in the left greater than right. PSYCH: Anxious, + severe pain. Course - Vital Signs Vital signs: Temp Pulse Resp BP Pulse Ox 99.9 F 23 H 162/98 H 97 10/24/19 10:28 10/24/19 14:04 10/24/19 14:04 10/24/19 14:04 - Laboratory Result Diagrams: 10/24/19 10:25 10/24/19 10:25 Laboratory results interpreted by me: 10/24/19 10/24/19 10:25 10:28 Potassium 3.3 L Chloride 108 H Carbon Dioxide 21 L BUN 6 L Glucose 208 H Calcium 7.4 L ALT 53 H Urine Protein 100 H Urine Glucose (UA) >=500 H Urine Ketones TRACE H I have reviewed laboratory data and used this information for the treatment decisions regarding the patient. - Diagnostic Test Radiology reviewed: Image reviewed, Reports reviewed - CT scan abdomen and pelvis IV contrast: No acute intra-abdominal findings. Discharge - Discharge Clinical Impression: Abdominal wall pain, Abdominal hyperesthesia Condition: Good Disposition: HOME, SELF-CARE Instructions: Abdominal Pain ([facility]), Toradol Injection ([facility]) Additional Instructions: You are seen in the emergency department with pain in the epigastric area, given the sensitivity of the skin with severe pain to light touch question of herpetic pain in the abdominal wall area. You will receive prescriptions for nausea and vomiting control, pain control and an antiviral agent. Please follow-up with your primary care doctor for recheck. If your symptoms are worsening or if you have other concerns you may return to the emergency department for further evaluation and treatment. HOME CARE INSTRUCTIONS & INFORMATION: Thank you for choosing us for your medical needs. We hope you're satisfied with the care you received. After you leave, you must properly care for your problem and, at the same time, observe its progress. Any condition can change. Some illnesses can change rapidly over hours or days. If your condition worsens, return to the Emergency Department or see your physician promptly. ABOUT YOUR X-RAYS AND EKG'S: If you had an EKG or X-rays taken, they have been read by the Emergency Physician. The X-rays and EKG's will also be read by a Radiologist or Java Support Engineer within 24 hours. If discrepancies are noted, you will be notified by telephone. Please be certain the ED has a correct telephone number & address where you can be reached. Also, realize that some fractures or abnormalities do not show up on initial X-rays. If your symptoms continue, see your physician. ABOUT YOUR LABORATORY TEST: If you had laboratory tests, the results have been reviewed by the Emergency Physician. Some test results (for example cultures) may not be available for several days. You will be contacted if any test result shows you need additional treatment. Please be certain the ED has a correct telephone number and address where you can be reached. ABOUT YOUR MEDICATIONS: You will receive instructions on how to take your medic ine on the prescription label you receive. Additional information may be provided by the Pharmacy. If you have questions afterwards, call the ED for clarification or further instructions. Some prescribed medications may cause drowsiness. Do not perform tasks such as driving a car or operating machinery without consulting your Pharmacist. If you feel you need a refill of pain medication, your condition will need re-evaluation. Please do not call for a refill of any medication. ABOUT YOUR SIGNATURE: Signature of this document acknowledges to followin. Understanding that you received emergency treatment and that you may be released before al medical problems are known or treated. Please be certain the ED has a correct phone number & address where you can be reached. 2. Acknowledgement that you will arrange for follow-up care as recommended. 3. Authorization for the Emergency Physician to provide information to your follow-up Physician in order to maximize your care. AT ANY TIME, IF YOUR SYMPTOMS CHANGE SIGNIFICANTLY OR WORSEN OR YOU DEVELOP NEW SYMPTOMS, RETURN TO THE EMERGENCY DEPARTMENT IMMEDIATELY FOR RE-EVALUATION. OUR GOAL IS TO PROVIDE EXCELLENT MEDICAL CARE! WE HOPE THAT WE HAVE MET YOUR EXPECTATIONS DURING YOUR EMERGENCY DEPARTMENT VISIT AND THAT YOU FEEL YOU HAVE RECEIVED EXCELLENT CARE! Prescriptions: Naproxen [Naprosyn] 500 mg PO BID #20 tablet Hydrocodone/Acetaminophen [[place] 5-325 mg Tablet] 1 tab PO Q6 PRN #10 tablet PRN Reason: Hydrocodone/Acetaminophen [[place] 5-325 mg Tablet] 1 tab PO Q6 PRN #10 tablet PRN Reason: Valacyclovir HCl [Valtrex 500 Mg Tablet] 1,000 mg PO TID #42 tablet Ondansetron [Zofran Odt 4 mg Tablet] 1 - 2 tab PO Q4H PRN #15 tab.rapdis PRN Reason: For Nausea/Vomiting [facility]errals: [facility] [Primary Care Provider] - Follow up as needed
[2019-10-24] MEDS ORDERED: ONDANSETRON HCL INJ/PF 4 MG/2 ML SDV IV ONE (10:50)
[2019-10-24 10:54] LABS: ALBUMIN 3.5 g/dL (3.5-5.0); ALKALINE PHOSPHATASE 90 U/L (38-126); ANION GAP 9 (5-19); ASPARTATE AMINO TRANSFERASE 48 U/L (17-59); BILIRUBIN,TOTAL 0.4 mg/dL (0.2-1.3); BLOOD UREA NITROGEN 6 mg/dL (7-20); CALCIUM 7.4 mg/dL (8.4-10.2); CARBON DIOXIDE 21 mmol/L (22-30); CHLORIDE 108 mmol/L (98-107); GLUCOSE 208 mg/dL (75-110); POTASSIUM 3.3 mmol/L (3.6-5.0); TOTAL PROTEIN 6.3 g/dL (6.3-8.2)
[2019-10-24 11:14] LABS: CREATINE KINASE MB 2.39 ng/mL (<4.55)
[2019-10-24 11:15] LABS: TROPONIN I < 0.012 ng/mL
[2019-10-24] MEDS ORDERED: LIDOCAINE 2% VISCOUS SOLN 15 ML UDCUP PO ONE (11:42)
[2019-10-24] MEDS ORDERED: METOCLOPRAMIDE HCL ORAL SOLN 10 MG/10 ML UDCUP PO ONE (11:42)
[2019-10-24] MEDS ORDERED: MAG HYDROX/AL HYDROX/SIMETH SUSP 30 ML UDCUP PO ONE (11:42)
--- NOTE | 2019-10-24 11:54 | RADIOLOGY REPORT (SQ) ---
EXAM DESCRIPTION: CT ABD/PELVIS WITH IV ONLY IMAGES COMPLETED DATE/TIME: 10/24/2019 11:22 am REASON FOR STUDY: Epigastric abdominal pain COMPARISON: 03/13/2018 TECHNIQUE: CT scan of the abdomen and pelvis performed using helical scanning technique with dynamic intravenous contrast injection. No oral contrast. Images reviewed with lung, soft tissue, and bone windows. Reconstructed coronal and sagittal MPR images reviewed. Delayed images for evaluation of the urinary system also acquired. All images stored on PACS. All CT scanners at this facility use dose modulation, iterative reconstruction, and/or weight based d osing when appropriate to reduce radiation dose to as low as reasonably achievable (ALARA). [facility]: Dose Right [facility]: CareDose [facility]: Dose Right [facility]: Teradose 4D [facility]: Lumenpulse CONTRAST TYPE AND DOSE: contrast/concentration: Isovue 350.00 mg/ml; Total Contrast Delivered: 100.0 ml; Total Saline Delivered: 53.0 ml RENAL FUNCTION: Creatinine 0.6 RADIATION DOSE: CT Rad equipment meets quality standard of care and radiation dose reduction techniq ues were employed. CTDIvol: 16.2 - 19.2 mGy. DLP: 2098 mGy-cm.. LIMITATIONS: None. FINDINGS: LOWER CHEST: No acute findings. Chronic right-sided rib fractures. LIVER: Significant hepatic steatosis. Hypoattenuation along the falciform ligament likely from syste baylee venous drainage. No additional focal lesions. SPLEEN: Normal size. No focal lesions. PANCREAS: No masses. No significant calcifications. No adjacent inflammation or peripancreatic fluid collections. Pancreatic duct not dilated. GALLBLADDER: No identified stones by CT criteria. No inflammatory changes to suggest cholecystitis. ADRENAL GLANDS: No significant masses or asymmetry. RIGHT KIDNEY AND URETER: No solid masses. No significant calcifications. No hydronephrosis or hyd roureter. LEFT KIDNEY AND URETER: No solid masses. No significant calcifications. No hydronephrosis or hydr oureter. AORTA AND VESSELS: No aneurysm. No dissection. Renal arteries, SMA, celiac without stenosis. RETROPERITONEUM: No retroperitoneal adenopathy, hemorrhage or masses. BOWEL AND PERITONEAL CAVITY: No masses or inflammatory changes. No free fluid or peritoneal masses. APPENDIX: Normal. PELVIS: No mass. No free fluid. Normal bladder. ABDOMINAL WALL: No masses. Small fat containing inguinal hernias. BONES: No acute bony abnormality. No suspicious osseous lesions. Chronic right-sided rib fracture. OTHER: No other significant finding. IMPRESSION: 1. Hepatic steatosis. 2. No other evidence of acute intra-abdominal/pelvic process. TECHNICAL DOCUMENTATION: JOB ID: [id number] Quality ID # [id number]: Final reports with documentation of one or more dose reduction techniques (e.g., Au tomated exposure control, adjustment of the mA and/or kV according to patient size, use of iterative reconstruction technique) 2010 [employer]- All Rights Reserved Reading location - IP/workstation name: [email or web address]
[2019-10-24] MEDS ORDERED: PROMETHAZINE HCL INJ 25 MG/1 ML VIAL IV ONE (12:28)
[2019-10-24] MEDS ORDERED: PROCHLORPERAZINE EDISYLATE INJ 10 MG/2 ML VIAL IV ONE (12:39)
[2019-10-24] MEDS ORDERED: NORMAL SALINE 1000 ML 1,000 ML IV ONE (12:42)
[2019-10-24] MEDS ORDERED: NALBUPHINE HCL INJ 10 MG/1 ML AMPULE INJ ONE (13:10)
[2019-10-24] MEDS ORDERED: FENTANYL CITRATE INJ/PF 100 MCG/2 ML AMPUL IV STA (13:34)
[2019-10-24 14:17] LABS: APPEARANCE,URINE CLEAR; BILIRUBIN,URINE NEGATIVE (NEGATIVE); COLOR,URINE YELLOW; GLUCOSE, URINE >=500 mg/dL (NEGATIVE); KETONES,URINE TRACE mg/dL (NEGATIVE); LEUKOCYTE ESTERASE,URINE NEGATIVE (NEGATIVE); NITRITE,URINE NEGATIVE (NEGATIVE); PROTEIN,URINE 100 mg/dL (NEGATIVE); URINE SPECIFIC GRAVITY 1.044; UROBILINOGEN,URINE NEGATIVE mg/dL (<2.0)
[2019-10-24 15:11] VITALS: BP 159/99
--- NOTE | 2019-10-25 07:52 | EKG REPORT ---
SEVERITY:- BORDERLINE ECG - SINUS TACHYCARDIA VENTRICULAR PREMATURE COMPLEX BORDERLINE R WAVE PROGRESSION, ANTERIOR LEADS : Confirmed by: Janie Ortiz MD 25-Oct-2019 07:51:02
== END 2019-10-24 15:16 | disposition home or self-care (01) ==
LOC: ER 10:20
DX: R10.9 Unspecified abdominal pain (principal); R20.3 Hyperesthesia; R10.13 Epigastric pain; R21 Rash and other nonspecific skin eruption; R19.7 Diarrhea, unspecified; R11.10 Vomiting, unspecified; R10.11 Right upper quadrant pain; Z88.8 Allergy status to other drugs, medicaments and biological substances; I10 Essential (primary) hypertension; E11.9 Type 2 diabetes mellitus without complications
CPT/HCPCS: 93005; 99284; 96361; 96374; 96375; 36415; 82553; 82550; 83690; 85025; 80053; 81001; 84484; 74177; 93010; J3010; J1885; J2270; J0780; J2550; J2405; J7030